=== PATIENT | female | born 1950 | race Caucasian/White ===

== ENCOUNTER 2024-06-03 08:43 | Outpatient (AMB) | payer MEDICARE, SELFPAY ==
--- NOTE | 2024-06-03 09:00 | A.OFFVIS_ITS ---
Vital Signs 06/03/24 09:01 Height 5 ft 4 in Weight 199 lb 2 oz BMI 34.2 BP 120/72 Blood Pressure Location Lt brachial Position Sitting Pulse 70 Pulse Source Pulse Oximeter Pulse Oximetry (%) 99 Oxygen Delivery Method Room Air Intake Visit Reasons: arthritis Intake Note: Patient presents for follow up on osteoarthritis today. Allergies ciprofloxacin [From Cipro] Allergy (Mild, Verified 06/03/24 09:08) rash prednisone Allergy (Mild, Verified 06/03/24 09:08) Itching Sulfa (Sulfonamide Antibiotics) Allergy (Mild, Verified 06/03/24 09:08) Rash acetaminophen [From Percocet] Adverse Reaction (Mild, Verified 06/03/24 09:08) itchiness albuterol Adverse Reaction (Mild, Verified 06/03/24 09:08) can't breathe high blood pressure oxycodone Adverse Reaction (Mild, Verified 06/03/24 09:08) itchiness tramadol Adverse Reaction (Mild, Verified 06/03/24 09:08) headache, nausea HPI HPI arthritis: Details: After a fall [place] stair [place] the movie theater she has had increase pain in left hand and right bunion. Pain is worse at night. Denies paresthesia. PA at [facility] prescribed gabapentin without benefit. She has been using diclofenac gel to the affected areas without benefit. Failed Tylenol. She is avoiding oral NSAIDs due to concurrent use of apixaban. [facility] Medical History (Updated 06/03/24 @ 21:36 by Marino Bonner MD) Encounter for colonoscopy following surgery for colon cancer Surgical History (Updated 06/03/24 @ 09:15 by Yesy Shah CMA) History of total left knee replacement (TKR) History of cholecystectomy Physical Exam Vital Signs: Last Vital Signs Pulse 70 06/03/24 09:01 BP 120/72 06/03/24 09:01 Pulse Ox 99 06/03/24 09:01 Oxygen Delivery Method Room Air 06/03/24 09:01 BMI result Body Mass Index 34.2 Const Other: General: Comfortable Skin: No lesions seen MSK: Tender left PIPs. No synovitis present. She has subluxation of DIPJ. Heberden nodes and Jesus's nodes present. Hallux valgus deformity present with tenderness on palpation on right side. Assessment & Plan Assessment & Plan (1) Osteoarthritis, hand: Comment: Pain is uncontrolled with Tylenol and diclofenac gel. Contraindication to oral NSAIDs use due to concurrent use of apixaban, which increases risk of bleeding. I am ordering bilateral hand x-rays to evaluate for erosive osteoarthritis as there may be a role to consider hydroxychloroquine. She was started on gabapentin by ortho PA to help treat generalized pain. Gabapentin is not indicated to treat pain from hand OA. Code(s): M19.049 - Primary osteoarthritis, unspecified hand Category: Medical Qualifiers: Osteoarthritis type: primary Laterality: right Qualified Code(s): M19.041 - Primary osteoarthritis, right hand Plan: Bilateral x-rays ordered Consider discontinued gabapentin [facility] Return to clinic in 2-3 weeks (2) Bunion, right foot: Comment: Pain is uncontrolled. Code(s): M21.611 - Bunion of right foot Category: Medical Plan: X-ray ordered. Return to clinic in 2-3 weeks for consideration of right 1st MTP intra-articular cortisone injection Orders: Orders XR hand LT min 3V Today M19.049 - Primary osteoarthritis, unspecified hand, M21.611 - Bunion of right foot OT Evaluation and Treatment Today M19.049 - Primary osteoarthritis, unspecified hand XR hand RT min 3V Today M19.049 - Primary osteoarthritis, unspecified hand XR foot RT 2V Today M21.611 - Bunion of right foot Coding Level of Care Code Est Pt Level 3 (70631) Complex EM visit Add On G2211 Diagnoses Primary osteoarthritis of right hand M19.041 Osteoarthritis type: primary Laterality: right Bunion, right foot M21.611
[2024-06-03 09:01] VITALS: BP 120/72; PULSE 70; O2SAT 99; BMI 34.2
--- OUTSIDE RECORDS SUMMARY | 2024-06-03 09:04 | XMS_ITS | Continuity of Care Document ---
Author Organization [facility], [facility] 1st Floor Address [address] [place] [address] Assessment No assessment recorded. Plan of Treatment Reminders Order Date Submit Date Provider Last Modified By Organization Details Last Modified Time Details Appointments RECHECK 15 2024 08:30A M Jane Snider CNP Not available Not available Not available Lab None recorded . Referral None recorded . Procedures None recorded . Surgeries None recorded . Imaging None recorded . Medication Orders None recorded . Patient TargetsNo targets recorded. Patient InstructionsNo instructions recorded. Reason for Referral None Reported. Results Created Date Observation Date Name Description Value Unit Range Abnormal Flag Note LastModifiedBy Organization Detail LastModifiedTime 04/09/20 24 04/09/2024 XR, foot, 2 view [email or web address]:/ [email or web address] ?Encry pted=s hAaTro YD8dLq bEUv6g %2BXZw aYqtaq 0bqfl% 2Fg9IQ a4ajBk vP9nXo QUaueC m3YtLR FvZlgJ JJ8mAn HZtai3 4p4934 AC0Kqa X%2BGV 6OvKiQ trMwF INTERFACE [facility] Office [address], [place], [address], 04/09/2024 08:54:19 04/09/20 24 04/09/2024 XR, foot, 2 view [email or web address]:/ [email or web address] ?Encry pted=s hAaTro YD8dLq bEUv6g %2BXZw aYqtaq 0bqfl% 2Fg9IQ a4ajBk vP9nXo QUaueC m3YtLR FvZlg [address] 2w8919 AC0Kqa X%2BGV 6OvKiQ trMwF INTERFACE [facility] [address], [place], [address], 04/09/2024 08:54:22 04/16/20 24 04/16/2024 XR, knee, 4 or more view http:/ [email or web address] ?Encry pted=s hAaTro YD8dLq bEUv6g %2BXZw aYqtaq 0bqfl% 2Fg9IQ a4ajBk vP9nXo QUaueC m3YtLR FvZl[address] 2q3329 AC0Kqa XiHWKq mKiQtr MwF INTERFACE [facility] [address] [facility] [address], [place], [address], 04/16/2024 08:54:30 04/16/20 24 04/16/2024 XR, knee, 4 or more view [email or web address]:/ [email or web address] ?Encry pted=s hAaTro YD8dLq bEUv6g %2BXZw aYqtaq 0bqfl% 2Fg9IQ a4ajBk vP9nXo QUaueC m3YtLR FvZl61 [address] 8k2045 AC0Kqa XiHWKq mKiQtr MwF INTERFACE [facility] [address] [facility] [address], [place], [address], 04/16/2024 08:54:32 04/16/20 24 04/16/2024 XR, elbow , 3 or more view http:/ [email or web address] ?Encry pted=s hAaTro YD8dLq bEUv6g %2BXZw aYqtaq 0bqfl% 2Fg9IQ a4ajBk vP9nXo QUaueC m3YtLR FvZlg JJ8mAn HZtai3 7t3926 AC0Kqa XiGUaK vKiQtr MwF INTERFACE [facility] [address], [place], [address], 04/16/2024 08:57:40 04/16/20 24 04/16/2024 XR, elbow , 3 or more view [email or web address]:/ [email or web address] ?Encry pted=s hAaTro YD8dLq bEUv6g %2BXZw aYqtaq 0bqfl% 2Fg9IQ a4ajBk vP9nXo QUaueC m3YtLR FvZlgJ JJ8mAn HZtai3 2k5546 AC0Kqa XiGUaK vKiQtr MwF INTERFACE [facility] [address], [place], [address], 04/16/2024 08:57:43 04/22/20 24 04/21/2024 MRI, foot, w/o contr ast [facility] te MRI- [facility] Access ion Number : [id number] Patien t Name: Julia Riya Martinez l Record Number : [id number] Date of : 1950 Date of Exam: 2023 Referr ing Physic renae: [facility] [address] [place] [address] Exam: MR Foot (C-) CPT 75839 - Right Room Descri ption: [facility] 3T MRI RIGHT FOOT HISTOR Y: Pain FINDIN GS: Lisfra nc ligame nt is intact . Mild first MTP osteoa rthrit is with small osteop hytes and small degene rative cysts No marrow edema. No eviden ce of fractu re. No signif icant TMT osteoa rthrit is. Flexor and extens or tendon s of the foot are intact . Mild first MTP osteoa rthrit is. Otherw ise normal exam. Electr onical ly Signed By: Trudi Vernon MD [email or web address] [facility] ([facility]) [address], [place], [address], 05/06/2024 13:44:49 Result Notes None recorded. Problems Name Problem SNOMED Code Status Onset Date Resolution Date Notes Provider Name and Address Organization Details Recorded Time No complaint s 703900673 Active Status: 'I'; [facility] Available [facility] 09:16:47 Pain in elbow 35319922 Active 2023 Valorie salmon [place] - [facility] 4 08:48:27 Carpal tunnel syndrome of left wrist 152552885853 102 Active 2017 Problem Code: G56.02; Problem Code Type: ICD-10; Status: 'A'; Not Available [facility] 4 11:13:07 Trochante shannon bursitis of right hip 141030500803 100 Active 2017 Problem Code: M70.61; Problem Code Type: ICD-10; Status: 'A'; [facility] Available [facility] 4 11:13:07 Trochante shannon bursitis of left hip 619984672643 103 Active 2017 Problem Code: M70.62; Problem Code Type: ICD-10; Status: 'A'; [facility] Available [facility] 4 11:13:07 Idiopathi c osteoarth ritis 171437495 Active 2017 Problem Code: M18.12; Problem Code Type: ICD-10; Status: 'A'; [facility] Available [facility] 4 11:13:07 Joint derangeme nt 389805309 Active 2017 Problem Code: M24.832; Problem Code Type: ICD-10; Status: 'A'; [facility] Available [facility] 4 11:13:07 Problem Notes None recorded. Procedures Surgical History Date Name Laterality Status Provider Name and Address Organization Details Recorded Time 4 Hip Kenalog 1cc Injection, L/R completed Jane Snider, [employer] [address], [place], [address], [facility] - [facility] 05/01/2024 14:11:24 4 Hip Kenalog 1cc Injection, L/R completed Jane Snider, [employer]RO[employer]/FI[employer]MAN [address], [place], [address], [facility] 11/07/2023 17:04:37 4 Hip Kenalog 1cc Injection, L/R completed Jane Galveza, [employer]RO[employer]/FIREMAN [address], [place], [address], [facility] 09/17/2023 12:18:20 Imaging Results None recorded. Procedure Notes None recorded. Medical Equipment None Reported. Allergies Allergen ID Allergen Name Allergen Category Reaction Reaction Severity Criticality Documentation Date Start Date Code Code System Note Provider Name and Address Organization Details Recorded Time 28792 prednison e medicatio n Not available Not available Not available 07/23/20232022 8640 RxNorm Not Available [facility] 4 13:52:04 84510 Cipro medicatio n Not available Not available Not available 07/23/20232020 37760 3 RxNorm Not Available [facility] 4 13:52:04 32106 lisinopri l medicatio n Not available Not available Not available 07/23/20232020 27609 RxNorm Not Available [facility] 4 13:52:04 Medications Name Sig Start Date Stop Date Status Note LastModified by Organization Details LastModified Time cyclobenzapr ine 10 mg tablet TAKE 1 TABLET BY MOUTH THREE TIMES DAILY active Not Available Not Available Not Available amoxicillin 500 mg capsule TAKE 4 CAPSULES BY MOUTH 1 HOUR BEFORE DENTAL APPOINTMENT active Not Available Not Available Not Available loperamide 2 mg capsule TAKE 1 CAPSULE BY MOUTH FOUR TIMES DAILY 1/2 HOUR BEFORE MEALS AND AT BEDTIME active Not Available Not Available N ot Available trazodone 50 mg tablet TAKE 1 TABLET BY MOUTH DAILY AT BEDTIME active Not Available Not Available N ot Available cetirizine 10 mg tablet TAKE 1 TABLET BY MOUTH DAILY active Not Available Not Available Not Available azithromycin 250 mg tablet active Not Available Not Available Not Available tizanidine 4 mg tablet TAKE ONE TABLET THREE TIMES DAILY. active Not Available Not Available No t Available hydrocodone 5 mg-acetamino phen 325 mg tablet TAKE 1 TABLET BY MOUTH EVERY 6 HOURS FOR 7 DAYS NEEDED FOR PAIN active Not Available Not Available No t Available tramadol 50 mg tablet TAKE 1 TABLET BY MOUTH EVERY 6 HOURS FOR 7 DAYS active Not Available Not Available No t Available amoxicillin 500 mg tablet TAKE 4 TABLETS BY MOUTH ONE HOUR PRIOR TO DENTAL APPOINTMENT active Not Available Not Available Not Available bisoprolol fumarate 5 mg tablet TAKE 1 TABLET BY MOUTH DAILY. REPLACES CARVEDILOL active Not Available Not Available N ot Available oxycodone-ac etaminophen 5 mg-325 mg tablet TAKE 1 TO 2 TABLETS BY MOUTH EVERY 6 HOURS NEEDED FOR PAIN active Not Available Not Available No t Available hydromorphon e 2 mg tablet TAKE 1 TO 2 TABLETS BY MOUTH EVERY 4 HOURS NEEDED FOR MODERATE TO SEVERE PAIN. active Not Available Not Available No t Available alprazolam 0.25 mg tablet TAKE 1 TABLET BY MOUTH TWICE DAILY NEEDED FOR ANXIETY active Not Available Not Available No t Available cephalexin 500 mg capsule TAKE 1 CAPSULE BY MOUTH MORNING OF PROCEDURE active Not Available Not Available No t Available pantoprazole 40 mg tablet,delay ed release TAKE 1 TABLET BY MOUTH EVERY DAY active Not Available Not Available No t Available erythromycin 5 mg/gram (0.5 %) eye ointment APPLY A LAYER OF OINTMENT TO LOWER EYELID FOUR TIMES DAILY X 7 DAYS active Not Available Not Available No t Available nystatin 100,000 unit/gram topical cream APPLY TOPICALLY TO THE AFFECTED AREA TWICE DAILY FOR 14 DAYS active Not Available Not Available No t Available gabapentin 300 mg capsule TAKE 1 CAPSULE BY MOUTH THREE TIMES DAILY NEEDED active Not Available Not Available No t Available triamterene 37.5 mg-hydrochlo rothiazide 25 mg tablet TAKE 2 TABLETS BY MOUTH DAILY active Not Available Not Available Not Available codeine 10 mg-guaifenes in 100 mg/5 mL oral liquid TAKE 10 ML BY MOUTH EVERY 4 HOURS NEEDED FOR COUGH active Not Available Not Available No t Available furosemide 20 mg tablet TAKE 1 TABLET BY MOUTH DAILY FOR 5 DAYS NEEDED FOR SWELLING OR WEIGHT GAIN active Not Available Not Available Not Available gabapentin 100 mg capsule Take 1 capsule 3 times a day by oral route with meal(s) for 30 days. 2024 active Not Available Not Available Not Avai lable nystatin 100,000 unit/gram topical powder APPLY TOPICALLY TWICE DAILY active Not Available Not Available Not Available estradiol 0.01% (0.1 mg/gram) vaginal cream USE 1 GRAM VAGINALLY 3 TIMES PER WEEK active Not Available Not Available No t Available levofloxacin 750 mg tablet TAKE 1 TABLET BY MOUTH EVERY 24 HOURS FOR 4 DAYS active Not Available Not Available N ot Available methylpredni solone 4 mg tablets in a dose pack take as directed active Not Available Not Available No t Available ferrous sulfate 325 mg (65 mg iron) tablet,delay ed release TAKE 1 TABLET BY MOUTH DAILY active Not Available Not Available Not Available ipratropium bromide 42 mcg (0.06 %) nasal spray USE 2 SPRAYS IN EACH NOSTRIL THREE TIMES DAILY IN EACH NOSTRIL active Not Available Not Available No t Available morphine 15 mg immediate release tablet TAKE 1/2 TO 1 TABLET BY MOUTH EVERY 4 HOURS NEEDED FOR MODERATE PAIN active Not Available Not Available No t Available fluticasone propionate 50 mcg/actuatio n nasal spray,suspen jess SHAKE LIQUID AND USE 1 SPRAY IN EACH NOSTRIL TWICE DAILY active Not Available Not Available Not Available metronidazol e 0.75 % topical gel APPLY TOPICALLY TO FACE IN THE MORNING AND IN THE EVENING FOR ROSACEA active Not Available Not Available No t Available glipizide 5 mg tablet TAKE 1 TABLET BY MOUTH TWICE DAILY active Not Available Not Available No t Available tobramycin 0.3 %-dexamethas one 0.1 % eye drops,suspen jess SHAKE LIQUID AND INSTILL 1 DROP IN BOTH EYES THREE TIMES DAILY active Not Available Not Available No t Available azelaic acid 15 % topical gel APPLY TOPICALLY TO FACE 1 TO 2 TIMES DAILY FOR ROSACEA active Not Available Not Available No t Available nitrofuranto in monohydrate/ macrocrystal s 100 mg capsule TAKE 1 CAPSULE BY MOUTH TWICE DAILY FOR 5 DAYS active Not Available Not Available No t Available Pulmicort Flexhaler 180 mcg/actuatio n breath activated INHALE 1 PUFF BY MOUTH TWICE DAILY active Not Available Not Available No t Available ferrous sulfate 324 mg (65 mg iron) tablet,delay ed release TAKE 1 TABLET BY MOUTH DAILY active Not Available Not Available Not Available GaviLyte-G 236 gram-22.74 gram-6.74 gram-5.86 gram oral solution MIX AND DRINK DIRECTED BY MD OFFICE FOR PROCEDURE PREP active Not Available Not Available No t Available Allergy Relief (fexofenadin e) 180 mg tablet TAKE 1 TABLET BY MOUTH DAILY active Not Available Not Available Not Available Eliquis 5 mg tablet TAKE 1 TABLET BY MOUTH TWICE DAILY active Not Available Not Available No t Available Eliquis 2.5 mg tablet TAKE 1 TABLET BY MOUTH TWO TIMES A DAY FOR 7 DAYS. RESUME HOME DOSE OF 5MG AFTER 7 DAYS. active Not Available Not Available No t Available Readi-Cat 2 2 % (w/v) oral suspension DRINK FIRST BOTTLE 6 HOURS PRIOR TO EXAM, DRINK SECOND BOTTLE 90 MINUTES PRIOR TO EXAM active Not Available Not Available No t Available Voltaren Arthritis Pain 1 % topical gel APPLY 2 GRAMS TO THE AFFECTED AREA(S) BY TOPICAL ROUTE 4 TIMES PER DAY 2023 active Not Available Not Available Not Avai lable Vitals Date Recorded Body height Body mass index (BMI) Body weight Provider Name and Address Organization Details Last Updated DateTime 05/02/2024 160.02 cm 32.9 kg/m2 01605.18 g MARY ALONZO [place] - [facility] 05/02/2024 09:44:59 Social History None recorded. Functional Status None recorded. Mental Status None recorded. Family History Nothing Reported. Medical History No medical history recorded. Gynecological HistoryNo gynecological history recorded. Obstetrics History GPAL:G 0 P 0 0 0 0 Past Encounters Encounter ID Performer Location Encounter Start Date Encounter Closed Date Diagnosis/Indication Diagnosis SNOMED-CT Code Diagnosis ICD10 Code Diagnosis Note [id number] SEBLE Jimenez [address] [place] [address] 04/09/2024 08:15:41 04/24/2024 11:11:44 Pain in right foot 6637146925 76399 M79.671 Arthritis of right foot 0586609186 516683 M19.012 [id number] SEBLE Gomez [address] [place] [address] 04/16/2024 08:15:54 05/20/2024 12:14:40 History of left total knee replacement 4480225870 774085 Z96.652 Pain in elbow 82218822 M 25.522 Contusion of left knee 9801759293 0916588 S80.02XA Contusion of left elbow 7302899887 7338239 S50.02XA [id number] SEBLE Jimenez [address] [place] [address] 04/30/2024 08:44:20 05/29/2024 11:53:50 Arthritis of right foot 9602654078 459645 M19.071 Carpal susy trista syndrome of left wrist 4582754452 27527 G56.02 [id number] Jane Snider, JUDY [address] [place] [address] 05/02/2024 08:58:46 05/23/2024 07:19:39 Health Concerns Section Related Observation LastModified by Organization Detai ls LastModified Time None Recorded Concern Status LastModified by Organization Details LastModified Time None Recorded Payers Encounter Date Sequence Insurance Name Policy Number Policy Singh Covered Member ID Singh Member ID Guarantor Name 05/02/2024 2 [employer] (MEDICARE SUPPLEMENT) Riya Saldana Julia [id number] Riya Shana Dumont 05/02/2024 1 MEDICARE B-[place]: [facility] Riya Shana Dumont [id number] Riya Dumont Notes Date Note Type Note Provider Name and Address Organization Details Recorded Time 05/02/2024 text/html Riya is a 73 ye ar old female who is here for follow up of her left hip. She has known trochanteric bursitis and has had previous cortisone injection which gave good relief. She is here for follow up. Jane Snider, JUDY [address], [place], [address], [facility] - [facility] 05/02/2024 12:12:29 OBGyn Episode No OBEpisode recorded.
--- OUTSIDE RECORDS SUMMARY | 2024-06-03 09:04 | XMS_ITS | Continuity of Care Document ---
Author Organization [place]EL[place] - [facility], [facility] Campos 1st Floor Address [address] [place] [address] Assessment Encounter Date Assessment Date Assessment LastModified by Organization Details LastModified Time 05/26/2024 05/26/2024 I am seeing the patient today under the supervision of Dr. Barajas who was available but who did not see the patient. HPI: 73-year-old female seen in follow-up of right foot pain and left elbow and hand discomfort. 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 Spring White insert was of little benefit. Some KT tape seems to be helping her. She had also fallen in as a pain in her hip and thigh as well as the left elbow. She seemed to have a contusion of the ulnar nerve, which as been helped somewhat with course of steroids, and gabapentin. She continues her postural numbness and tingling in the median nerve innervated digits of the left hand relieved with a splint. Past family, medical, social history and review of systems has been reviewed, updated and is located in the patient? s chart. Examination: the patient is alert and cooperative in no acute distress. Afebrile, vital signs stable. There is active ROM of the hips and knees, calves are soft and nontender. There is active range of motion of foot and ankle. There is tenderness primarily in the mid arch region of the first TMT joint. There is positive Tinel sign in the ulnar nerve. Mild positive Khoi's elbow flexion test. There is mildly positive median nerve compression test. There is no thenar atrophy. Good thenar strength. Normal Froment sign Impression: Resolving left elbow contusion, mild left carpal tunnel syndrome, right foot. Pain with first TMT arthritis Plan:. She will continue with her medications. We will continue with the splint. We are going to try midfoot compression wrap. Foot pain continues could consider first TMT injection. Also may consider a carpal tunnel injection. [email or web address] Not available 05/26/2024 09:31:20 Plan of Treatment Reminders Order Date Submit Date Provider Last Modified By Organization Details Last Modified Time Details Appointments RECHECK 15 2024 08:30A M Jane Snider, JUDY Not available Not available Not available Lab None recorded. Referral None recorded. Procedures None recorded. Surgeries None recorded. Imaging None recorded. Medication Orders gabapenti n 100 mg capsule 2024 025 [email or web address] [id number], [address] [facility], [place], [place], [id number], 05/26/2024 11:52:41 Patient TargetsNo targets recorded. Patient InstructionsNo instructions recorded. Reason for Referral None Reported. Problems Name Problem SNOMED Code Status Onset Date Resolution Date Notes Provider Name and Address Organization Details Recorded Time No complaint s 682443620 Active Status: 'I'; Not Available [facility] 4 09:16:47 Pain in elbow 43929833 Active 2023 Valorie salmon [place] - [facility] 4 08:48:27 Carpal tunnel syndrome of left wrist 083948425954 102 Active 2017 Problem Code: G56.02; Problem Code Type: ICD-10; Status: 'A'; Not Available [facility] 4 11:13:07 Trochante shannon bursitis of right hip 477805760837 100 Active 2017 Problem Code: M70.61; Problem Code Type: ICD-10; Status: 'A'; Not Available [facility] 4 11:13:07 Trochante shannon bursitis of left hip 064642210517 103 Active 2017 Problem Code: M70.62; Problem Code Type: ICD-10; Status: 'A'; Not Available [facility] 4 11:13:07 Idiopathi c osteoarth ritis 266168429 Active 2017 Problem Code: M18.12; Problem Code Type: ICD-10; Status: 'A'; Not Available [facility] 4 11:13:07 Joint derangeme nt 405148706 Active 2017 Problem Code: M24.832; Problem Code Type: ICD-10; Status: 'A'; Not Available [facility] 4 11:13:07 Problem Notes None recorded. Procedures Surgical History Date Name Laterality Status Provider Name and Address Organization Details Recorded Time 4 Hip Kenalog 1cc Injection, L/R completed Jane Drenga, HEALTHCARE ADMINISTRATOR [address], [place], [address], [facility] 05/01/2024 14:11:24 4 Hip Kenalog 1cc Injection, L/R completed Jane Drenga, HEALTHCARE ADMINISTRATOR [address], [place], [address], [facility] 11/07/2023 17:04:37 4 Hip Kenalog 1cc Injection, L/R completed Jane Drenga, HEALTHCARE ADMINISTRATOR [address], [place], [address], [facility] 09/17/2023 12:18:20 Imaging Results None recorded. Procedure Notes None recorded. Medical Equipment None Reported. Allergies Allergen ID Allergen Name Allergen Category Reaction Reaction Severity Criticality Documentation Date Start Date Code Code System Note Provider Name and Address Organization Details Recorded Time 83143 prednison e medicatio n Not available Not available Not available 07/23/20232022 8640 RxNorm Not Available [facility] 4 13:52:04 92136 Cipro medicatio n Not available Not available Not available 07/23/20232020 61506 3 RxNorm Not Available [facility] 13:52:04 75087 lisinopri l medicatio n Not available Not available Not available 07/23/20232020 52714 RxNorm Not Available [facility] 13:52:04 Medications Name Sig Start Date Stop [...] and Address Organization Details Last Updated DateTime 05/26/2024 160.02 cm 32.9 kg/m2 96542.18 g Bere Puckett [place] - [facility] 05/26/2024 08:44:06 Social History None recorded. Functional Status None recorded. Mental Status None recorded. Family History Nothing Reported. Medical History No medical history recorded. Gynecological HistoryNo gynecological history recorded. Obstetrics History GPAL:G 0 P 0 0 0 0 Past Encounters Encounter ID Performer Location Encounter Start Date Encounter Closed Date Diagnosis/Indication Diagnosis SNOMED-CT Code Diagnosis ICD10 Code Diagnosis Note [id number] [facility] [address] [place] [address] 04/30/2024 08:44:20 05/29/2024 11:53:50 Arthritis of right foot 0244375177 419701 M19.071 Carpal susy trista syndrome of left wrist 3882685424 59089 G56.02 [id number] Jane Agatha, HEALTHCARE ADMINISTRATOR [facility] [address] [place] [address] 05/02/2024 08:58:46 05/23/2024 07:19:39 [id number] Aaron Barajas PA-C [place] - [facility] [address] [place] [address] 05/26/2024 08:34:55 05/26/2024 09:32:20 Pain in right foot 6639520873 99573 M79.671 Carpal susy trista syndrome of left wrist 3421003954 01849 G56.02 Arthritis of right foot 4980970912 735586 M19.071 Health Concerns Section Related Observation LastModified by Organization Detai ls LastModified Time None Recorded Concern Status LastModified by Organization Details LastModified Time None Recorded Payers Encounter Date Sequence Insurance Name Policy Number Policy Singh Covered Member ID Singh Member ID Guarantor Name 05/26/2024 2 [employer] (MEDICARE SUPPLEMENT) Riya Dumont [id number] Riya Dumont 05/26/2024 1 [place] [employer] Riya Dumont [id number] Riya Dumont OBGyn Episode No OBEpisode recorded.
--- OUTSIDE RECORDS SUMMARY | 2024-06-03 09:05 | XMS_ITS | Continuity of Care Document ---
Author Organization [place] - [facility], [place] 1[address] Address [address] [place] [address] Assessment No assessment recorded. Plan of Treatment Reminders Order Date Submit Date Provider Last Modified By Organization Details Last Modified Time Details Appointments RECHECK 15 2024 08:30A M Jane Snider CNP Not available Not available Not available Lab None recorded . Referral None recorded . Procedures None recorded . Surgeries None recorded . Imaging XR, knee, 4 or more view - LTKR 12/06/22. Dr. Blum [email or web address] [facility], [address], [place], [address], 04/16/2024 11:48:51 XR, elbow, 3 or more view - lft elbow pain rm [email or web address] [facility], [address], [place], [address], 04/16/2024 11:48:51 Medication Orders None recorded . Patient TargetsNo targets recorded. Patient InstructionsNo instructions recorded. Reason for Referral None Reported. Results Created Date Observation Date Name Description Value Unit Range Abnormal Flag Note LastModifiedBy Organization Detail LastModifiedTime 04/09/20 24 04/09/2024 XR, foot, 2 view [email or web address]:/ [email or web address] ?Encry pted=s hAaTro YD8dLq bEUv6g %2BXZw aYqtaq 0bqfl% 2Fg9IQ a4ajBk vP9nXo QUaueC m3YtLR FvZlgJ JJ8mAn HZtai3 5m4737 AC0Kqa X%2BGV 6OvKiQ trMwF INTERFACE [facility] [address] [facility] [address], [place], [address], 04/09/2024 08:54:19 04/09/20 24 04/09/2024 XR, foot, 2 view [email or web address]:/ [email or web address] ?Encry pted=s hAaTro YD8dLq bEUv6g %2BXZw aYqtaq 0bqfl% 2Fg9IQ a4ajBk vP9nXo QUaueC m3YtLR FvZl JJ8[place] HZtai3 8q9332 AC0Kqa X%2BGV 6OvKiQ trMwF INTERFACE [facility] [address] [address], [place], [address], 04/09/2024 08:54:22 04/16/20 24 04/16/2024 XR, knee, 4 or more view [email or web address]:/ [email or web address] ?Encry pted=s hAaTro YD8dLq bEUv6g %2BXZw aYqtaq 0bqfl% 2Fg9IQ a4ajBk vP9nXo QUaueC m3YtLR FvZl JJ8[place] HZtai3 2d9323 AC0Kqa XiHWKq mKiQtr MwF INTERFACE [facility] [address] [address], [place], [address], 04/16/2024 08:54:30 04/16/20 24 04/16/2024 XR, knee, 4 or more view [email or web address]:/ [email or web address] ?Encry pted=s hAaTro YD8dLq bEUv6g %2BXZw aYqtaq 0bqfl% 2Fg9IQ a4ajBk vP9nXo QUaueC m3YtLR FvZlgJ JJ8mAn HZtai3 5v2336 AC0Kqa XiHWKq mKiQtr MwF INTERFACE [facility] [address], [place], [address], 04/16/2024 08:54:32 04/16/20 24 04/16/2024 XR, elbow , 3 or more view http:/ [email or web address] ?Encry pted=s hAaTro YD8dLq bEUv6g %2BXZw aYqtaq 0bqfl% 2Fg9IQ a4ajBk vP9nXo QUaueC m3YtLR FvZlgJ JJ8mAn HZtai3 6u3738 AC0Kqa XiGUaK vKiQtr MwF INTERFACE [facility] [address], [place], [address], 04/16/2024 08:57:40 04/16/20 24 04/16/2024 XR, elbow , 3 or more view http:/ [email or web address] ?Encry pted=s hAaTro YD8dLq bEUv6g %2BXZw aYqtaq 0bqfl% 2Fg9IQ a4ajBk vP9nXo QUaueC m3YtLR FvZlgJ JJ8mAn HZtai3 5p6171 AC0Kqa XiGUaK vKiQtr MwF INTERFACE [facility] [address] [facility] [address], [place], [address], 04/16/2024 08:57:43 04/22/20 24 04/21/2024 MRI, foot, w/o contr ast [facility] Access ion Number : [id number] Divine jim Name: Riya Dumont Record Number : [id number] Date of : 1950 Date of Exam: 2023 Referr ing Physic renae: [facility] [address], [address] [place] [address] Exam: MR Foot (C-) CPT 66319 - Right Room Descri ption: [facility] Pion 3T MRI RIGHT FOOT HISTOR Y: Pain [...] onical ly Signed By: Trudi Vernon MD [email or web address] [facility] ([facility]) [address], [place], [address], 05/06/2024 13:44:49 Result Notes None recorded. Problems Name Problem SNOMED Code Status Onset Date Resolution Date Notes Provider Name and Address Organization Details Recorded Time No complaint s 332161972 Active Status: 'I'; Not Available [facility] 4 09:16:47 Pain in elbow 73262314 Active 2023 Valorie salmon [place] - [facility] 4 08:48:27 Carpal tunnel syndrome of left wrist 071253532331 102 Active 2017 Problem Code: G56.02; Problem Code Type: ICD-10; Status: 'A'; Not Available [facility] 4 11:13:07 Trochante shannon bursitis of right hip 257721357385 100 Active 2017 Problem Code: M70.61; Problem Code Type: ICD-10; Status: 'A'; Not Available [facility] 4 11:13:07 Trochante shannon bursitis of left hip 894800571039 103 Active 2017 Problem Code: M70.62; Problem Code Type: ICD-10; Status: 'A'; Not Available [facility] 4 11:13:07 Idiopathi c osteoarth ritis 939049038 Active 2017 Problem Code: M18.12; Problem Code Type: ICD-10; Status: 'A'; Not Available [facility] 4 11:13:07 Joint derangeme nt 222018373 Active 2017 Problem Code: M24.832; Problem Code Type: ICD-10; Status: 'A'; Not Available [facility] 4 11:13:07 Problem Notes None recorded. Procedures Surgical History Date Name Laterality Status Provider Name and Address Organization Details Recorded Time 4 Hip Kenalog 1cc Injection, L/R completed Jane Drenga, FOOD AND NUTRITION SERVICES ASSISTANT [address] [facility], [place], [address], [facility] 05/01/2024 14:11:24 4 Hip Kenalog 1cc Injection, L/R completed Jane Drenga, FOOD AND NUTRITION SERVICES ASSISTANT [address], [place], [address], [facility] 11/07/2023 17:04:37 4 Hip Kenalog 1cc Injection, L/R completed Jane Drenga, FOOD AND NUTRITION SERVICES ASSISTANT [address], [place], [address], [facility] 09/17/2023 12:18:20 Imaging Results None recorded. Procedure Notes None recorded. Medical Equipment None Reported. Allergies Allergen ID Allergen Name Allergen Category Reaction Reaction Severity Criticality Documentation Date Start Date Code Code System Note Provider Name and Address Organization Details Recorded Time 82664 prednison e medicatio n Not available Not available Not available 07/23/20232022 8640 RxNorm Not Available [facility] 4 13:52:04 22633 Cipro medicatio n Not available Not available Not available 07/23/20232020 62369 3 RxNorm Not Available [facility] 4 13:52:04 98027 lisinopri l medicatio n Not available Not available Not available 07/23/20232020 77095 RxNorm Not Available [facility] 4 13:52:04 Medications Name Sig Start Date [...] and Address Organization Details Last Updated DateTime 04/16/2024 160.02 cm 32.9 kg/m2 36086.18 g Valorie Reese [place] - [facility] 04/16/2024 08:44:24 Social History None recorded. Functional Status None recorded. Mental Status None recorded. Family History Nothing Reported. Medical History No medical history recorded. Gynecological HistoryNo gynecological history recorded. Obstetrics History GPAL:G 0 P 0 0 0 0 Past Encounters Encounter ID Performer Location Encounter Start Date Encounter Closed Date Diagnosis/Indication Diagnosis SNOMED-CT Code Diagnosis ICD10 Code Diagnosis Note [id number] [facility] [address] [place] [address] 04/09/2024 08:15:41 04/24/2024 11:11:44 Pain in right foot 2877076550 08674 M79.671 Arthritis of right foot 2135497490 098557 M19.796 [id number] Leno Maher PA-C [facility] [address] [place] [address] 04/16/2024 08:15:54 05/20/2024 12:14:40 History of left total knee replacement 2402797342 797967 Z96.652 Pain in elbow 68925241 M 25.522 Contusion of left knee 7657083999 1775469 S80.02XA Contusion of left elbow 7299255304 8074248 S50.02XA Health Concerns Section Related Observation LastModified by Organization Detai ls LastModified Time None Recorded Concern Status LastModified by Organization Details LastModified Time None Recorded Payers Encounter Date Sequence Insurance Name Policy Number Policy Singh Covered Member ID Singh Member ID Guarantor Name 04/16/2024 1 [place] [employer] Ryiapalmer Dumont [id number] Riyapalmer Dumont 04/16/2024 2 [place] [id number] Riya Saldana Julia [id number] Riya Saldana Julia Notes Date Note Type Note Provider Name and Address Organization Details Recorded Time 04/16/2024 text/html I am seeing the patient today under the supervision of Dr. Caban who was available but who did not see the patient. HPI: Patient is a 73-year-old female with a history of a left total knee replacement by Dr. Blum on 12/06/2022. Patient unfortunately sustained a fall a few days ago on Sunday when she was walking [place] the stairs at a movie theater and her shoe got caught and she face planted. She hit her face against the ground as well as her left knee and left elbow. Has been having some mild pain in both her elbow as well as her knee. Increased pain with ambulatory activities. Has been icing as needed. Ickr-agx-lokfbmx medications as needed for pain relief. No instability in the knee. No catching or locking. Past family, medical, social history and review of systems has been reviewed, updated and is located in the patient? s chart. Examination: Well-appearing 73-year-old female in no acute distress. She is alert and oriented x 3. Ambulates with a slightly antalgic gait. Left knee reveals a well-healed surgical incision. No erythema, warmth, ecchymosis. Small joint effusion noted. Mild tenderness to palpation over the anterior aspect of the knee. No tenderness palpation over the medial or lateral joint lines. Range of motion of the knee from 0-120 degrees with mild discomfort at the endpoints. Knee strength 5/5 against resistance with flexion and extension. Knee is stable to both valgus and varus stress testing. Post is intact. Calf is soft and nontender. Left elbow reveals no erythema, warmth, ecchymosis, swelling. Patient has full range of motion with elbow flexion and extension. Full range of motion of the wrist and digits. Mild discomfort with elbow extension. There is some tenderness primarily over the medial epicondyle. No other tenderness to palpation. No laxity with valgus or varus stress testing. Strength 5/5 against resistance with elbow flexion and extension. Distally neurovascular intact. 4 views of the left knee obtained and independently reviewed in the office today reveal left total knee arthroplasty in good alignment. No evidence of any osteolysis or loosening. Patella is tracking centrally. No fracture. 3 views of the left elbow reveal no acute fractures. Impression:Left knee and left elbow contusion Plan:Reassured patient today that radiographic findings are unremarkable. No signs of acute fracture. Patient to can delacruz you to treat this conservatively with icing, resting, activity modification as well as use of oaqa-cuh-turbquz medications. Patient can follow-up with us on an as-needed basis. At this time all patient questions and concerns were answered today. Leno Maher PA-C [address] [facility], [place], [address], [facility] - [place] [facility] 04/21/2024 09:31:08 OBGyn Episode No OBEpisode recorded.
--- OUTSIDE RECORDS SUMMARY | 2024-06-03 09:05 | XMS_ITS | Continuity of Care Document ---
Author Organization [place] - [facility], [facility] 1st Floor Address [address] [place] [address] Assessment Encounter Date Assessment Date Assessment LastModified by Organization Details LastModified Time 04/09/2024 04/09/2024 I am seeing the patient today under the supervision of Dr. Barajas who was available but who did not see the patient. HPI: 73-year-old female returns for reevaluation of bilateral foot pain. She has had pain primarily in the first MTP regions along the medial border of her first ray. Right is greater than left. She tried carbon fiber insoles, which did not help at all. She felt helped somewhat by P4 compound but she cannot afford it anymore. 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 She denies numbness or tingling. She has seen a obstetrics teacher in the past and has been discharged without diagnosis. Past family, medical, social history and review of systems has been reviewed, updated and is located in the patient? s chart. Examination: the patient is alert and cooperative in no acute distress. Afebrile, vital signs stable. There is active ROM of the hips and knees, calves are soft and nontender. His active range of motion both ankles. Both feet are aligned reasonably well. She has some stiffness of the left ankle. 2. Hindfoot valgus. Previous ORIF of her ankle is been performed on the left. There is tenderness primarily along the first ray medially. There is pain without instability in the first TMT joint. Lesser pain in the first MTP joint area and circulation sensation intact.gastrocnem ius tightness is noted bilaterally X-rays ordered, obtained and reviewed at [facility]. Single AP film was normal. The right foot today to rule out stress fracture was negative. Impression: Right foot pain, question first TMT arthritis. Plan:I recommended gastroc stretching, use of anti-inflammatory cream. A CT scan will be obtained to assess her right foot for lytic change. She will recheck with me roca Not available 04/09/2024 09:09:19 Plan of Treatment Reminders Order Date Submit Date Provider Last Modified By Organization Details Last Modified Time Details Appointments RECHECK 15 2024 08:30A Sabi Snider, BLAST FURNACE HELPER Not available Not available Not available Lab None recorded. Referral None recorded. Procedures None recorded. Surgeries None recorded. Imaging XR, foot, 2 view - rm 110 right foot ap view only 2023 [place] [address] [facility], [address], [place], [address], 04/09/2024 09:53:22 MRI, foot, w/o contrast - RIGHT FOOT EVAL TMT ARTHRITIS PAIN,SWEL LING 2023 024 [facility] ([facility]), [address], [place], [address], 04/22/2024 15:50:53 Medication Orders Voltaren Arthritis Pain 1 % topical gel [address] [id number], [address] [place], [place], [phone], 04/09/2024 09:53:22 Patient TargetsNo targets recorded. Patient InstructionsNo instructions recorded. Reason for Referral None Reported. Results Created Date Observation Date Name Description Value Unit Range Abnormal Flag Note LastModifiedBy Organization Detail LastModifiedTime 04/09/20 24 04/09/2024 XR, foot, 2 view [email or web address] ?Encry pted=s hAaTro YD8dLq bEUv6g %2BXZw aYqtaq 0bqfl% 2Fg9IQ a4ajBk vP9nXo QUaueC m3YtLR FvZlgJ JJ8mAn HZtai3 9i7049 AC0Kqa X%2BGV 6OvKiQ trMwF INTERFACE [facility] [address] [facility], [place], [address], 04/09/2024 08:54:19 04/09/20 24 04/09/2024 XR, foot, 2 view [email or web address]:/ [email or web address] ?Encry pted=s hAaTro YD8dLq bEUv6g %2BXZw aYqtaq 0bqfl% 2Fg9IQ a4ajBk vP9nXo QUaueC m3YtLR FvZl JJ8Galloway HZtai3 8m4562 AC0Kqa X%2BGV 6OvKiQ trMwF INTERFACE [facility] [address] [facility] [address], [place], [address], 04/09/2024 08:54:22 04/16/20 24 04/16/2024 XR, knee, 4 or more view [email or web address] ?Encry pted=s hAaTro YD8dLq bEUv6g %2BXZw aYqtaq 0bqfl% 2Fg9IQ a4ajBk vP9nXo QUaueC m3YtLR FvZl JJ8Galloway HZtai3 1o8352 AC0Kqa XiHWKq mKiQtr MwF INTERFACE [facility] [address] [facility] [address], [place], [address], 04/16/2024 08:54:30 04/16/20 24 04/16/2024 XR, knee, 4 or more view [email or web address] ?Encry pted=s hAaTro YD8dLq bEUv6g %2BXZw aYqtaq 0bqfl% 2Fg9IQ a4ajBk vP9nXo QUaueC m3YtLR FvZlgJ JJ8Galloway HZtai3 6t7212 AC0Kqa XiHWKq mKiQtr MwF INTERFACE [facility] [address], [place], [address], 04/16/2024 08:54:32 04/16/20 24 04/16/2024 XR, elbow , 3 or more view [email or web address] ?Encry pted=s hAaTro YD8dLq bEUv6g %2BXZw aYqtaq 0bqfl% 2Fg9IQ a4ajBk vP9nXo QUaueC m3YtLR FvZlgJ JJ8mAn HZtai3 0t6465 AC0Kqa XiGUaK vKiQtr MwF INTERFACE [facility] [address], [place], [address], 04/16/2024 08:57:40 04/16/20 24 04/16/2024 XR, elbow , 3 or more view [email or web address] ?Encry pted=s hAaTro YD8dLq bEUv6g %2BXZw aYqtaq 0bqfl% 2Fg9IQ a4ajBk vP9nXo QUaueC m3YtLR FvZlgJ JJ8Galloway HZtai3 9m9568 AC0Kqa XiGUaK vKiQtr MwF INTERFACE [facility] [address], [place], [address], 04/16/2024 08:57:43 04/22/20 24 04/21/2024 MRI, foot, w/o contr ast [facility] Access ion Number : [id number] Divine t Name: Riya Dumont Record Number : [id number] Date of : 1950 Date of Exam: 2023 Referr ing Physic renae: [facility] ([facility]) [address], [address] [place] [address] Exam: MR Foot (C-) CPT 16138 - Right Room Descri ption: [facility] Pi 3T MRI RIGHT FOOT HISTOR Y: Pain [...] onical ly Signed By: Trudi Vernon MD [facility] ([facility]) [address], [place], [address], 05/06/2024 13:44:49 Result Notes None recorded. Problems Name Problem SNOMED Code Status Onset Date Resolution Date Notes Provider Name and Address Organization Details Recorded Time No complaint s 443699373 Active Status: 'I'; Not Available [facility] 4 09:16:47 Pain in elbow 10734328 Active 2023 Valorie salmon [place] - [facility] 4 08:48:27 Carpal tunnel syndrome of left wrist 307852465203 102 Active 2017 Problem Code: G56.02; Problem Code Type: ICD-10; Status: 'A'; Not Available [facility] 4 11:13:07 Trochante shannon bursitis of right hip 512258759983 100 Active 2017 Problem Code: M70.61; Problem Code Type: ICD-10; Status: 'A'; Not Available [facility] 4 11:13:07 Trochante shannon bursitis of left hip 122749518050 103 Active 2017 Problem Code: M70.62; Problem Code Type: ICD-10; Status: 'A'; Not Available [facility] 4 11:13:07 Idiopathi c osteoarth ritis 133650421 Active 2017 Problem Code: M18.12; Problem Code Type: ICD-10; Status: 'A'; Not Available [facility] 4 11:13:07 Joint derangeme nt 783598502 Active 2017 Problem Code: M24.832; Problem Code Type: ICD-10; Status: 'A'; Not Available [facility] 4 11:13:07 Problem Notes None recorded. Procedures Surgical History Date Name Laterality Status Provider Name and Address Organization Details Recorded Time 4 Hip Kenalog 1cc Injection, L/R completed Jane Drenga, BLAST FURNACE HELPER [address] [facility], [place], [address], [facility] 05/01/2024 14:11:24 4 Hip Kenalog 1cc Injection, L/R completed Jane Drenga, BLAST FURNACE HELPER [address], [place], [address], [facility] 11/07/2023 17:04:37 4 Hip Kenalog 1cc Injection, L/R completed Jane Drenga, BLAST FURNACE HELPER [address], [place], [address], [facility] 09/17/2023 12:18:20 Imaging Results None recorded. Procedure Notes None recorded. Medical Equipment None Reported. Allergies Allergen ID Allergen Name Allergen Category Reaction Reaction Severity Criticality Documentation Date Start Date Code Code System Note Provider Name and Address Organization Details Recorded Time 32343 prednison e medicatio n Not available Not available Not available 07/23/20232022 8640 RxNorm Not Available [facility] 4 13:52:04 89721 Cipro medicatio n Not available Not available Not available 07/23/20232020 30271 3 RxNorm Not Available [facility] 4 13:52:04 99501 lisinopri l medicatio n Not available Not available Not available 07/23/20232020 19038 RxNorm Not Available [facility] 13:52:04 Medications Name Sig Start Date Stop [...] and Address Organization Details Last Updated DateTime 04/09/2024 160.02 cm 32.9 kg/m2 71528.18 g MARY ALONZO [place] - [facility] 04/09/2024 08:20:51 Social History None recorded. Functional Status None recorded. Mental Status None recorded. Family History Nothing Reported. Medical History No medical history recorded. Gynecological HistoryNo gynecological history recorded. Obstetrics History GPAL:G 0 P 0 0 0 0 Past Encounters Encounter ID Performer Location Encounter Start Date Encounter Closed Date Diagnosis/Indication Diagnosis SNOMED-CT Code Diagnosis ICD10 Code Diagnosis Note [id number] [facility] [address] [place] [address] 04/09/2024 08:15:41 04/24/2024 11:11:44 Pain in right foot 6406967143 47730 M79.671 Arthritis of right foot 3208012543 077704 M19.071 Health Concerns Section Related Observation LastModified by Organization Detai ls LastModified Time None Recorded Concern Status LastModified by Organization Details LastModified Time None Recorded Payers Encounter Date Sequence Insurance Name Policy Number Policy Singh Covered Member ID Singh Member ID Guarantor Name 04/09/2024 1 [place] [employer] Riya Dumont [id number] Riya Dumont 04/09/2024 2 [place] [id number] Riya Dumont [id number] Riya Dumont OBGyn Episode No OBEpisode recorded.
--- OUTSIDE RECORDS SUMMARY | 2024-06-03 09:05 | XMS_ITS | Continuity of Care Document ---
Author Organization [place] - [facility], [facility] 1st Floor Address [address] [place] [address] Assessment Encounter Date Assessment Date Assessment LastModified by Organization Details LastModified Time 04/30/2024 04/30/2024 I am seeing the patient today under the supervision of Dr. Ennis who was available but who did not see the patient. HPI: 73-year-old female seen in follow-up of right foot pain. She said pain along the medial border foot area of the first ray. A postoperative shoe did not provide much assistance and she is using a sneaker. Also, since I last saw her, she fell down an escalator [place] [employer] and had a contusion to the left side of her face and injured her left elbow. Since that time she has had lancinating pain into the forearm and hand. Occasionally has some numbness in the index finger and feels strange sensation in the ring and small fingers. She had been seen in the ER. Past family, medical, social history and review of systems has been reviewed, updated and is located in the patient? s chart. Examination: the patient is alert and cooperative in no acute distress. Afebrile, vital signs stable. There is active ROM of the hips and knees, calves are soft and nontender. There is active range of motion of the right ankle and the AP plane. There persists to be tenderness along the medial border of the mid and forefoot. No instability of the first ray noted. No tenderness in the first interspace. Pain seems to be primarily centered in the first TMT joint. Examination of the left elbow reveals full range of motion, positive Khoi's elbow flexed S mildly positive median nerve compression test. Abduction posture of the thumb with tenderness at the base of the thumb metacarpal trapezial joint. Intact digital motion. MRI scan which was ordered and reviewed, demonstrates degenerative changes of the first metatarsal tarsal joint. Impression: Right first metatarsal tarsal arthritis, left elbow contusion with likely ulnar nerve contusion. 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 I considered injecting the first TMT joint. But given her other symptoms only ultimately decided to try a course of tapering steroids. Also use a wrist splint and an arch support and avoid extremes of elbow flexion. She has appointment with Mayela coming up, but she can discuss how her symptoms are. I will be out of town coming up and if her foot is still bothering her, she could be referred to one of the foot surgeons for consideration of injection of the TMT joint. All hand and elbow care as per her symptoms. [email or web address] Not available 04/30/2024 09:32:23 Plan of Treatment Reminders Order Date Submit Date Provider Last Modified By Organization Details Last Modified Time Details Appointments RECHECK 15 2024 08:30A M Jane Snider CNP Not available Not available Not available Lab None recorded . Referral None recorded . Procedures None recorded . Surgeries None recorded . Imaging None recorded . Medication Orders Medrol (Earl) 4 mg tablets in a dose pack 2023 024 [email or web address] [id number], [address] [place], [place], [phone], 04/30/2024 10:21:22 Patient TargetsNo targets recorded. Patient InstructionsNo instructions recorded. Reason for Referral None Reported. Results Created Date Observation Date Name Description Value Unit Range Abnormal Flag Note LastModifiedBy Organization Detail LastModifiedTime 04/09/20 24 04/09/2024 XR, foot, 2 view [email or web address] ?Encry pted=s hAaTro YD8dLq bEUv6g %2BXZw aYqtaq 0bqfl% 2Fg9IQ a4ajBk vP9nXo QUaueC m3YtLR FvZlgJ JJ8mAn HZtai3 9d4519 AC0Kqa X%2BGV 6OvKiQ trMwF INTERFACE [facility] [address] [facility] [address], [place], [address], 04/09/2024 08:54:19 04/09/20 24 04/09/2024 XR, foot, 2 view [email or web address]:/ [email or web address] ?Encry pted=s hAaTro YD8dLq bEUv6g %2BXZw aYqtaq 0bqfl% 2Fg9IQ a4ajBk vP9nXo QUaueC m3YtLR FvZl[address] HZtai3 9d2608 AC0Kqa X%2BGV 6OvKiQ trMwF INTERFACE [facility] [address], [place], [address], 04/09/2024 08:54:22 04/16/20 24 04/16/2024 XR, knee, 4 or more view [email or web address]:/ [email or web address] ?Encry pted=s hAaTro YD8dLq bEUv6g %2BXZw aYqtaq 0bqfl% 2Fg9IQ a4ajBk vP9nXo QUaueC m3YtLR FvZl[address] HZtai3 3a5613 AC0Kqa XiHWKq mKiQtr MwF INTERFACE [facility] [address] [place] [address], [place], [address], 04/16/2024 08:54:30 04/16/20 24 04/16/2024 XR, knee, 4 or more view [email or web address]:/ [email or web address] ?Encry pted=s hAaTro YD8dLq bEUv6g %2BXZw aYqtaq 0bqfl% 2Fg9IQ a4ajBk vP9nXo QUaueC m3YtLR FvZlgJ JJ8mAn HZtai3 7m3144 AC0Kqa XiHWKq mKiQtr MwF INTERFACE [facility] [address], [place], [address], 04/16/2024 08:54:32 04/16/20 24 04/16/2024 XR, elbow , 3 or more view [email or web address] ?Encry pted=s hAaTro YD8dLq bEUv6g %2BXZw aYqtaq 0bqfl% 2Fg9IQ a4ajBk vP9nXo QUaueC m3YtLR FvZlgJ JJ8mAn HZtai3 9i9315 AC0Kqa XiGUaK vKiQtr MwF INTERFACE [facility] [address], [place], [address], 04/16/2024 08:57:40 04/16/20 24 04/16/2024 XR, elbow , 3 or more view [email or web address] ?Encry pted=s hAaTro YD8dLq bEUv6g %2BXZw aYqtaq 0bqfl% 2Fg9IQ a4ajBk vP9nXo QUaueC m3YtLR FvZlgJ JJ8mAn HZtai3 0q2759 AC0Kqa XiGUaK vKiQtr MwF INTERFACE [facility] [address], [place], [address], 04/16/2024 08:57:43 04/22/20 24 04/21/2024 MRI, foot, w/o contr ast [facility] Access ion Number : [id number] Name: Riya Dumont l Record Number : [id number] Date of : 1950 Date of Exam: 2023 Referr ing Physic renae: Aaron Tay i [facility] ed[facility] Surgeo ns ([facility]) [address], [address] [place] [address] Exam: MR Foot (C-) CPT 85781 - Right Room Descri ption: [facility] 3T MRI RIGHT FOOT HISTOR Y: Pain [...] onical ly Signed By: Trudi Vernon MD [email or web address] [facility] ([facility]) [address], [place], [address], 05/06/2024 13:44:49 Result Notes None recorded. Problems Name Problem SNOMED Code Status Onset Date Resolution Date Notes Provider Name and Address Organization Details Recorded Time No complaint s 258121726 Active Status: 'I'; Not Available [facility] 4 09:16:47 Pain in elbow 30440458 Active 2023 Valorie salmon [place] - [facility] 4 08:48:27 Carpal tunnel syndrome of left wrist 976257860390 102 Active 2017 Problem Code: G56.02; Problem Code Type: ICD-10; Status: 'A'; Not Available [facility] 4 11:13:07 Trochante shannon bursitis of right hip 484151737381 100 Active 2017 Problem Code: M70.61; Problem Code Type: ICD-10; Status: 'A'; Not Available [facility] 4 11:13:07 Trochante shannon bursitis of left hip 778405696976 103 Active 2017 Problem Code: M70.62; Problem Code Type: ICD-10; Status: 'A'; Not Available [facility] 4 11:13:07 Idiopathi c osteoarth ritis 592628436 Active 2017 Problem Code: M18.12; Problem Code Type: ICD-10; Status: 'A'; Not Available [facility] 4 11:13:07 Joint derangeme nt 902746137 Active 2017 Problem Code: M24.832; Problem Code Type: ICD-10; Status: 'A'; Not Available [facility] 4 11:13:07 Problem Notes None recorded. Procedures Surgical History Date Name Laterality Status Provider Name and Address Organization Details Recorded Time 4 Hip Kenalog 1cc Injection, L/R completed Jane Drenga, MERCHANDISE EXECUTIVE [address], [place], [address], [facility] 05/01/2024 14:11:24 4 Hip Kenalog 1cc Injection, L/R completed Jane Drenga, MERCHANDISE EXECUTIVE [address], [place], [address], [facility] 11/07/2023 17:04:37 4 Hip Kenalog 1cc Injection, L/R completed Jane Drenga, MERCHANDISE EXECUTIVE [address], [place], [address], [facility] 09/17/2023 12:18:20 Imaging Results None recorded. Procedure Notes None recorded. Medical Equipment None Reported. Allergies Allergen ID Allergen Name Allergen Category Reaction Reaction Severity Criticality Documentation Date Start Date Code Code System Note Provider Name and Address Organization Details Recorded Time 56685 prednison e medicatio n Not available Not available Not available 07/23/20232022 8640 RxNorm Not Available [facility] 4 13:52:04 07902 Cipro medicatio n Not available Not available Not available 07/23/20232020 06164 3 RxNorm Not Available [facility] 4 13:52:04 83294 lisinopri l medicatio n Not available Not available Not available 07/23/20232020 97022 RxNorm Not Available [facility] 4 13:52:04 Medications Name Sig Start Date [...] Avai lable Vitals Date Recorded Body height Provider Name an d Address Organization Details Last Updated DateTime 04/30/2024 160.02 cm cindy quintana [place] [facility] 04/30/2024 08:50:45 Social History None recorded. Functional Status None recorded. Mental Status None recorded. Family History Nothing Reported. Medical History No medical history recorded. Gynecological HistoryNo gynecological history recorded. Obstetrics History GPAL:G 0 P 0 0 0 0 Past Encounters Encounter ID Performer Location Encounter Start Date Encounter Closed Date Diagnosis/Indication Diagnosis SNOMED-CT Code Diagnosis ICD10 Code Diagnosis Note [id number] [facility] [address] [place] [address] 04/09/2024 08:15:41 04/24/2024 11:11:44 Pain in right foot 3481846012 33746 M79.671 Arthritis of right foot 1623264039 016651 M19.815 [id number] [facility] [address] [place] [address] 04/16/2024 08:15:54 05/20/2024 12:14:40 History of left total knee replacement 1503640787 548055 Z96.652 Pain in elbow 19737797 M 25.522 Contusion of left knee 5710047332 8533180 S80.02XA Contusion of left elbow 5336295227 4698815 S50.02XA [id number] [facility] [address] [place] [address] 04/30/2024 08:44:20 05/29/2024 11:53:50 Arthritis of right foot 0755171130 223087 M19.071 Carpal susy trista syndrome of left wrist 4447489463 38891 G56.02 Health Concerns Section Related Observation LastModified by Organization Detai ls LastModified Time None Recorded Concern Status LastModified by Organization Details LastModified Time None Recorded Payers Encounter Date Sequence Insurance Name Policy Number Policy Singh Covered Member ID Singh Member ID Guarantor Name 04/30/2024 2 [employer] (MEDICARE SUPPLEMENT) Riya Dumont [id number] Riya Dumont 04/30/2024 1 [place] [employer] Riya Dumont [id number] Riya Dumont OBGyn Episode No OBEpisode recorded.
--- OUTSIDE RECORDS SUMMARY | 2024-06-03 09:06 | XMS_ITS ---
Author Name [facility] Organization Unknown History of Medication Use Medication Directions Dispensed Refills Start Date End Date Stat us loperamide (capsule) 2 mg 12/27/2023 completed diclofenac sodium (gel) 1 % 09/27/2023 completed alprazolam (tablet) 0.25 mg 09/27/2023 c ompleted tobramycin-dexameth asone (drops, suspension) 1 drop both eyes 3 times a day 09/27/2023 completed ipratropium bromide (spray,non-aerosol) 21 mcg (0.03 %) 09/27/2023 completed bisoprolol fumarate 09/27/2023 c ompleted glipizide (tablet) 5 mg 09/27/2023 co mpleted Eliquis (tablet) 5 mg 09/27/2023 comp leted diltiazem HCl (capsule,extended release 24hr) 180 mg 09/27/2023 completed triamterene-hydroch lorothiazid (tablet) 37.5-25 mg 09/27/2023 completed
== END 2024-06-03 09:53 | disposition home or self-care (01) ==
PROVIDERS: PCP Nurse Practitioner Family; Visit Provider Internal Medicine Rheumatology
DX: M19.041 Primary osteoarthritis, right hand (principal); M21.611 Bunion of right foot
CPT/HCPCS: 99213; G2211

== ENCOUNTER → 2024-06-03 08:43 | Outpatient (BNVA) | payer MEDICARE, SELFPAY | PROVIDERS: PCP Nurse Practitioner Family; Visit Provider Internal Medicine Rheumatology | DX: M19.041 Primary osteoarthritis, right hand (principal); M21.611 Bunion of right foot | CPT/HCPCS: 99212 ==

== ENCOUNTER 2024-06-05 12:27 | Outpatient (REF) | payer MEDICARE, SELFPAY ==
--- NOTE | ~2024-06-05 | XR_ITS ---
CLINICAL HISTORY: M21.611 - Bunion of right foot 3 view right foot Comparison: None Findings: Bones intact. No dislocations. Surgical hardware on the distal fibula and tibia No significant arthritic change or erosions. No ankle effusion. No either radiopaque foreign body. IMPRESSION: 1. No acute findings. This document has been electronically signed by: Leno Valera MD on 06/06/2024 08:30:32
--- NOTE | ~2024-06-05 | XR_ITS ---
CLINICAL HISTORY: M19.049 - Primary osteoarthritis, unspecified hand 3 view left hand Comparison: None Findings: Bones intact. No dislocations. There are changes of polyarticular osteoarthritis. No erosions. No radiopaque foreign body. IMPRESSION: 1. No acute findings This document has been electronically signed by: Leno Valera MD on 06/06/2024 08:34:13
--- NOTE | ~2024-06-05 | XR_ITS ---
CLINICAL HISTORY: M19.049 - Primary osteoarthritis, unspecified hand 3 view left hand Comparison: None Findings: No fractures or dislocations. Osteoarthritic changes most pronounced in the 1st carpometacarpal and multiple interphalangeal joints. No erosions. No radiopaque foreign body. IMPRESSION: 1. No acute findings This document has been electronically signed by: Leno Valera MD on 06/06/2024 08:33:45
--- OUTSIDE RECORDS SUMMARY | 2024-06-05 15:46 | XMS_ITS | Continuity of Care Document ---
Author Organization [place]EL[place] - [facility]geons [facility], [facility] Campos 1st Floor Address [address] [place] [address] Assessment Encounter Date Assessment Date Assessment LastModified [...] RECHECK 15 2024 08:30A M Jane Snider, JUYD Not available Not available Not available Lab None recorded. Referral None recorded. Procedures None recorded. Surgeries None recorded. Imaging None recorded. Medication Orders gabapenti n 100 mg capsule 2024 025 epacitti2 [id number], [address] [facility], [place], [place], [phone], 05/26/2024 11:52:41 Patient TargetsNo targets recorded. Patient InstructionsNo instructions recorded. Reason for Referral None Reported. Problems Name Problem SNOMED Code Status Onset Date Resolution Date Notes Provider Name and Address Organization Details Recorded Time No complaint s 711662702 Active Status: 'I'; Not Available [facility] 4 09:16:47 Pain in elbow 71718719 Active 2023 Valorie salmon [place] - [facility] 4 08:48:27 Carpal tunnel syndrome of left wrist 763207429770 102 Active 2017 Problem Code: G56.02; Problem Code Type: ICD-10; Status: 'A'; Not Available [facility] 4 11:13:07 Trochante shannon bursitis of right hip 510114881028 100 Active 2017 Problem Code: M70.61; Problem Code Type: ICD-10; Status: 'A'; Not Available [facility] 4 11:13:07 Trochante shannon bursitis of left hip 478088798156 103 Active 2017 Problem Code: M70.62; Problem Code Type: ICD-10; Status: 'A'; Not Available [facility] 4 11:13:07 Idiopathi c osteoarth ritis 279257425 Active 2017 Problem Code: M18.12; Problem Code Type: ICD-10; Status: 'A'; Not Available [facility] 4 11:13:07 Joint derangeme nt 411199953 Active 2017 Problem Code: M24.832; Problem Code Type: ICD-10; Status: 'A'; Not Available [facility] 4 11:13:07 Problem Notes None recorded. Procedures Surgical History Date Name Laterality Status Provider Name and Address Organization Details Recorded Time 4 Hip Kenalog 1cc Injection, L/R completed Jane Drenga, HEALTH AND SAFETY MANAGER [address], [place], [address], [facility] 05/01/2024 14:11:24 4 Hip Kenalog 1cc Injection, L/R completed Jane Drenga, HEALTH AND SAFETY MANAGER [address], [place], [address], [facility] 11/07/2023 17:04:37 4 Hip Kenalog 1cc Injection, L/R completed Jane Drenga, HEALTH AND SAFETY MANAGER [address], [place], [address], [facility] 09/17/2023 12:18:20 Imaging Results None recorded. Procedure Notes None recorded. Medical Equipment None Reported. Allergies Allergen ID Allergen Name Allergen Category Reaction Reaction Severity Criticality Documentation Date Start Date Code Code System Note Provider Name and Address Organization Details Recorded Time 14724 prednison e medicatio n Not available Not available Not available 07/23/20232022 8640 RxNorm Not Available [facility] 4 13:52:04 54108 Cipro medicatio n Not available Not available Not available 07/23/20232020 29800 3 RxNorm Not Available [facility] 13:52:04 77740 lisinopri l medicatio n Not available Not available Not available 07/23/20232020 25333 RxNorm Not Available [facility] 13:52:04 Medications Name Sig Start Date Stop [...] Updated DateTime 05/26/2024 160.02 cm 32.9 kg/m2 55978.18 g Bere Puckett [place] - [facility] 05/26/2024 08:44:06 Social History None recorded. Functional Status None recorded. Mental Status None recorded. Family History Nothing Reported. Medical History No medical history recorded. Gynecological HistoryNo gynecological history recorded. Obstetrics History GPAL:G 0 P 0 0 0 0 Past Encounters Encounter ID Performer Location Encounter Start Date Encounter Closed Date Diagnosis/Indication Diagnosis SNOMED-CT Code Diagnosis ICD10 Code Diagnosis Note [id number] [facility] 1st [address] [place] [address] 04/30/2024 08:44:20 05/29/2024 11:53:50 Arthritis of right foot 8792779057 627796 M19.071 Carpal susy trista syndrome of left wrist 7412149261 32187 G56.02 [id number] Jane Agatha, HEALTH AND SAFETY MANAGER [facility] [address]st [address] [place] [address] 05/02/2024 08:58:46 05/23/2024 07:19:39 [id number] Aaron Barajas PA-C [place] [facility] [place] 1st [address] [place] [address] 05/26/2024 08:34:55 06/05/2024 10:21:22 Pain in right foot 5985192291 34019 M79.671 Carpal susy trista syndrome of left wrist 2763197941 26325 G56.02 Arthritis of right foot 6587359539 410140 M19.071 Health Concerns Section Related Observation LastModified by Organization Detai ls LastModified Time None Recorded Concern Status LastModified by Organization Details LastModified Time None Recorded Payers Encounter Date Sequence Insurance Name Policy Number Policy Singh Covered Member ID Singh Member ID Guarantor Name 05/26/2024 2 [employer] (MEDICARE SUPPLEMENT) Riya Dumont [id number] Riya Dumont 05/26/2024 1 [place] [employer] Riya Dumont [id number] Riya Dumont OBGyn Episode No OBEpisode recorded.
--- OUTSIDE RECORDS SUMMARY | 2024-06-05 15:46 | XMS_ITS | Continuity of Care Document ---
Author Organization [place] - [facility], [facility] 1st Floor Address [address] [place] [address] Assessment Encounter Date Assessment Date Assessment LastModified [...] in a dose pack 2023 024 epacitti1 [facility][id number], [address], [place], [id number], 04/30/2024 10:21:22 Patient TargetsNo targets recorded. Patient InstructionsNo instructions recorded. Reason for Referral None Reported. Results Created Date Observation Date Name Description Value Unit Range Abnormal Flag Note LastModifiedBy Organization Detail LastModifiedTime 04/09/20 24 04/09/2024 XR, foot, 2 view [email or web address] ?Encry pted=s hAaTro YD8dLq bEUv6g %2BXZw aYqtaq 0bqfl% 2Fg9IQ a4ajBk vP9nXo QUaueC m3YtLR FvZlgJ JJ8mAn HZtai3 5d1001 AC0Kqa X%2BGV 6OvKiQ trMwF INTERFACE [facility] [address] [facility] [address], [place], [address], 04/09/2024 08:54:19 04/09/20 24 04/09/2024 XR, foot, 2 view [email or web address]:/ [email or web address] ?Encry pted=s hAaTro YD8dLq bEUv6g %2BXZw aYqtaq 0bqfl% 2Fg9IQ a4ajBk vP9nXo QUaueC m3YtLR FvZl[address] HZtai3 6j8373 AC0Kqa X%2BGV 6OvKiQ trMwF INTERFACE [facility] [address], [place], [address], 04/09/2024 08:54:22 04/16/20 24 04/16/2024 XR, knee, 4 or more view [email or web address]:/ [email or web address] ?Encry pted=s hAaTro YD8dLq bEUv6g %2BXZw aYqtaq 0bqfl% 2Fg9IQ a4ajBk vP9nXo QUaueC m3YtLR FvZl[address] HZtai3 9u8413 AC0Kqa XiHWKq mKiQtr MwF INTERFACE [facility] [address] [place] [address], [place], [address], 04/16/2024 08:54:30 04/16/20 24 04/16/2024 XR, knee, 4 or more view [email or web address]:/ [email or web address] ?Encry pted=s hAaTro YD8dLq bEUv6g %2BXZw aYqtaq 0bqfl% 2Fg9IQ a4ajBk vP9nXo QUaueC m3YtLR FvZlgJ JJ8mAn HZtai3 2s0456 AC0Kqa XiHWKq mKiQtr MwF INTERFACE [facility] [address], [place], [address], 04/16/2024 08:54:32 04/16/20 24 04/16/2024 XR, elbow , 3 or more view [email or web address] ?Encry pted=s hAaTro YD8dLq bEUv6g %2BXZw aYqtaq 0bqfl% 2Fg9IQ a4ajBk vP9nXo QUaueC m3YtLR FvZlgJ JJ8mAn HZtai3 1a2613 AC0Kqa XiGUaK vKiQtr MwF INTERFACE [facility] [address], [place], [address], 04/16/2024 08:57:40 04/16/20 24 04/16/2024 XR, elbow , 3 or more view [email or web address] ?Encry pted=s hAaTro YD8dLq bEUv6g %2BXZw aYqtaq 0bqfl% 2Fg9IQ a4ajBk vP9nXo QUaueC m3YtLR FvZlgJ JJ8mAn HZtai3 4i4189 AC0Kqa XiGUaK vKiQtr MwF INTERFACE [facility] [address], [place], [address], 04/16/2024 08:57:43 04/22/20 24 04/21/2024 MRI, foot, w/o contr ast [facility] Access ion Number : [id number] Divine t Name: Riya Dumont l Record Number : [id number] Date of : 1950 Date of Exam: 2023 Referr ing Physic renae: Aaron [facility] i [facility] ([facility]) [address], [address] [place] [address] Exam: MR Foot (C-) CPT 89644 - Right Room Descri ption: [facility] 3T MRI RIGHT FOOT HISTOR Y: [...] onical ly Signed By: Trudi Vernon MD [email or web address] [facility] ([facility]) [address], [place], [address], 05/06/2024 13:44:49 Result Notes None recorded. Problems Name Problem SNOMED Code Status Onset Date Resolution Date Notes Provider Name and Address Organization Details Recorded Time No complaint s 923713684 Active Status: 'I'; Not Available [facility] 4 09:16:47 Pain in elbow 25375608 Active 2023 Valorie salmon [place] - [facility] 4 08:48:27 Carpal tunnel syndrome of left wrist 554728665781 102 Active 2017 Problem Code: G56.02; Problem Code Type: ICD-10; Status: 'A'; Not Available [facility] 4 11:13:07 Trochante shannon bursitis of right hip 156650240707 100 Active 2017 Problem Code: M70.61; Problem Code Type: ICD-10; Status: 'A'; Not Available [facility] 4 11:13:07 Trochante shannon bursitis of left hip 144536071471 103 Active 2017 Problem Code: M70.62; Problem Code Type: ICD-10; Status: 'A'; Not Available [facility] 4 11:13:07 Idiopathi c osteoarth ritis 107057669 Active 2017 Problem Code: M18.12; Problem Code Type: ICD-10; Status: 'A'; Not Available [facility] 4 11:13:07 Joint derangeme nt 611598512 Active 2017 Problem Code: M24.832; Problem Code Type: ICD-10; Status: 'A'; Not Available [facility] 4 11:13:07 Problem Notes None recorded. Procedures Surgical History Date Name Laterality Status Provider Name and Address Organization Details Recorded Time 4 Hip Kenalog 1cc Injection, L/R completed Jane Drenga, HEALTH PSYCHOLOGIST [address], [place], [address], [facility] 05/01/2024 14:11:24 4 Hip Kenalog 1cc Injection, L/R completed Jane Drenga, HEALTH PSYCHOLOGIST [address], [place], [address], [facility] 11/07/2023 17:04:37 4 Hip Kenalog 1cc Injection, L/R completed Jane Drenga, HEALTH PSYCHOLOGIST [address], [place], [address], [facility] 09/17/2023 12:18:20 Imaging Results None recorded. Procedure Notes None recorded. Medical Equipment None Reported. Allergies Allergen ID Allergen Name Allergen Category Reaction Reaction Severity Criticality Documentation Date Start Date Code Code System Note Provider Name and Address Organization Details Recorded Time 64122 prednison e medicatio n Not available Not available Not available 07/23/20232022 8640 RxNorm Not Available [facility] 4 13:52:04 62530 Cipro medicatio n Not available Not available Not available 07/23/20232020 06843 3 RxNorm Not Available [facility] 4 13:52:04 50606 lisinopri l medicatio n Not available Not available Not available 07/23/20232020 19373 RxNorm Not Available [facility] 4 13:52:04 Medications Name Sig Start Date [...] DateTime 04/30/2024 160.02 cm cindy quintana [place] [facility] 04/30/2024 08:50:45 Social History None recorded. Functional Status None recorded. Mental Status None recorded. Family History Nothing Reported. Medical History No medical history recorded. Gynecological HistoryNo gynecological history recorded. Obstetrics History GPAL:G 0 P 0 0 0 0 Past Encounters Encounter ID Performer Location Encounter Start Date Encounter Closed Date Diagnosis/Indication Diagnosis SNOMED-CT Code Diagnosis ICD10 Code Diagnosis Note [id number] [facility] 1st [address] [place] [address] 04/09/2024 08:15:41 04/24/2024 11:11:44 Pain in right foot 2327058434 29324 M79.671 Arthritis of right foot 7991065258 787318 M19.369 [id number] [facility] Gomez 1st [address] [place] [address] 04/16/2024 08:15:54 05/20/2024 12:14:40 History of left total knee replacement 7138680998 159053 Z96.652 Pain in elbow 57331544 M 25.522 Contusion of left knee 3313440022 8395584 S80.02XA Contusion of left elbow 2802375672 9814643 S50.02XA [id number] [facility] Jim[facility] 1[address] [place] [address] 04/30/2024 08:44:20 05/29/2024 11:53:50 Arthritis of right foot 3399770520 935037 M19.071 Carpal susy trista syndrome of left wrist 5027758219 92669 G56.02 Health Concerns Section Related Observation LastModified by Organization Detai ls LastModified Time None Recorded Concern Status LastModified by Organization Details LastModified Time None Recorded Payers Encounter Date Sequence Insurance Name Policy Number Policy Singh Covered Member ID Singh Member ID Guarantor Name 04/30/2024 2 [employer] (MEDICARE SUPPLEMENT) Riya Dumont [id number] Riya Dumont 04/30/2024 1 [place] [employer]MENT [employer] Riya Dumont [id number] Riya Dumont OBGyn Episode No OBEpisode recorded.
--- OUTSIDE RECORDS SUMMARY | 2024-06-05 15:46 | XMS_ITS | Continuity of Care Document ---
Author Organization [facility], [facility] [place] 1st Floor Address [address] [place] [address] Assessment No assessment recorded. Plan of Treatment [...] a4ajBk vP9nXo QUaueC m3YtLR FvZlgJ JJ8mAn HZtai3 3g1683 AC0Kqa X%2BGV 6OvKiQ trMwF INTERFACE [facility] [place] [facility] [address], [place], [address], 04/09/2024 08:54:19 04/09/20 24 04/09/2024 XR, foot, 2 view [email or web address]:/ [email or web address] ?Encry pted=s hAaTro YD8dLq bEUv6g %2BXZw aYqtaq 0bqfl% 2Fg9IQ a4ajBk vP9nXo QUaueC m3YtLR FvZlg [address]ta[address] [address]73 AC0Kqa X%2BGV 6OvKiQ trMwF INTERFACE [facility] [address], [place], [address], 04/09/2024 08:54:22 04/16/20 24 04/16/2024 XR, knee, 4 or more view [email or web address]:/ [email or web address] ?Encry pted=s hAaTro YD8dLq bEUv6g %2BXZw aYqtaq 0bqfl% 2Fg9IQ a4ajBk vP9nXo QUaueC m3YtLR FvZl20 [address] Streetta[address] 4s6974 AC0Kqa XiHWKq mKiQtr MwF INTERFACE [facility] [address] [facility] [address], [place], [address], 04/16/2024 08:54:30 04/16/20 24 04/16/2024 XR, knee, 4 or more view [email or web address]:/ [email or web address] ?Encry pted=s hAaTro YD8dLq bEUv6g %2BXZw aYqtaq 0bqfl% 2Fg9IQ a4ajBk vP9nXo QUaueC m3YtLR FvZl20 [address] Streettai 4w8956 AC0Kqa XiHWKq mKiQtr MwF INTERFACE [facility] [address] [facility] [address], [place], [address], 04/16/2024 08:54:32 04/16/20 24 04/16/2024 XR, elbow , 3 or more view [email or web address]:/ [email or web address] ?Encry pted=s hAaTro YD8dLq bEUv6g %2BXZw aYqtaq 0bqfl% 2Fg9IQ a4ajBk vP9nXo QUaueC m3YtLR FvZlg JJ8mAn HZtai3 0a0235 AC0Kqa XiGUaK vKiQtr MwF INTERFACE [facility] [address], [place], [address], 04/16/2024 08:57:40 04/16/20 24 04/16/2024 XR, elbow , 3 or more view [email or web address] ?Encry pted=s hAaTro YD8dLq bEUv6g %2BXZw aYqtaq 0bqfl% 2Fg9IQ a4ajBk vP9nXo QUaueC m3YtLR FvZlgJ JJ8mAn HZtai3 7q7110 AC0Kqa XiGUaK vKiQtr MwF INTERFACE [facility] [address], [place], [address], 04/16/2024 08:57:43 04/22/20 24 04/21/2024 MRI, foot, w/o contr ast [facility] Access ion Number : [id number] Patien t Name: Julia Riya Martinez l Record Number : [id number] Date of : 1950 Date of Exam: 2023 Referr ing Physic renae: Aaron Tay i Orthop edic Surgeo ns ([facility]) [address], [address] [place] [address] Exam: MR Foot (C-) CPT 09283 - Right Room Descri ption: [facility] 3T MRI RIGHT FOOT HISTOR Y: Pain [...] onical ly Signed By: Trudi Vernon MD [email or web address] [facility] ([facility]) [address], [place], [address], 05/06/2024 13:44:49 Result Notes None recorded. Problems Name Problem SNOMED Code Status Onset Date Resolution Date Notes Provider Name and Address Organization Details Recorded Time No complaint s 825935258 Active Status: 'I'; Not Available [facility] 4 09:16:47 Pain in elbow 45511177 Active 2023 Valorie salmon [place] - [facility] 4 08:48:27 Carpal tunnel syndrome of left wrist 151149885248 102 Active 2017 Problem Code: G56.02; Problem Code Type: ICD-10; Status: 'A'; Not Available [facility] 4 11:13:07 Trochante shannon bursitis of right hip 989958614280 100 Active 2017 Problem Code: M70.61; Problem Code Type: ICD-10; Status: 'A'; Not Available [facility] 4 11:13:07 Trochante shannon bursitis of left hip 654726142554 103 Active 2017 Problem Code: M70.62; Problem Code Type: ICD-10; Status: 'A'; Not Available [facility] 4 11:13:07 Idiopathi c osteoarth ritis 947418607 Active 2017 Problem Code: M18.12; Problem Code Type: ICD-10; Status: 'A'; Not Available [facility] 4 11:13:07 Joint derangeme nt 063437809 Active 2017 Problem Code: M24.832; Problem Code Type: ICD-10; Status: 'A'; Not Available [facility] 4 11:13:07 Problem Notes None recorded. Procedures Surgical History Date Name Laterality Status Provider Name and Address Organization Details Recorded Time 4 Hip Kenalog 1cc Injection, L/R completed Jane Snider, DIRECTOR PLANS [address], [place], [address], [facility] - [facility] 05/01/2024 14:11:24 4 Hip Kenalog 1cc Injection, L/R completed Jane Snider, DIRECTOR PLANS [address], [place], [address], [facility] 11/07/2023 17:04:37 4 Hip Kenalog 1cc Injection, L/R completed Jane Galveza, DIRECTOR PLANS [address], [place], [address], [facility] 09/17/2023 12:18:20 Imaging Results None recorded. Procedure Notes None recorded. Medical Equipment None Reported. Allergies Allergen ID Allergen Name Allergen Category Reaction Reaction Severity Criticality Documentation Date Start Date Code Code System Note Provider Name and Address Organization Details Recorded Time 00533 prednison e medicatio n Not available Not available Not available 07/23/20232022 8640 RxNorm Not Available [facility] 4 13:52:04 50809 Cipro medicatio n Not available Not available Not available 07/23/20232020 70280 3 RxNorm Not Available [facility] 4 13:52:04 70010 lisinopri l medicatio n Not available Not available Not available 07/23/20232020 08156 RxNorm Not Available [facility] 4 13:52:04 Medications Name Sig Start Date [...] Updated DateTime 05/02/2024 160.02 cm 32.9 kg/m2 91397.18 g MARY ALONZO [place] - [facility] 05/02/2024 09:44:59 Social History None recorded. Functional Status None recorded. Mental Status None recorded. Family History Nothing Reported. Medical History No medical history recorded. Gynecological HistoryNo gynecological history recorded. Obstetrics History GPAL:G 0 P 0 0 0 0 Past Encounters Encounter ID Performer Location Encounter Start Date Encounter Closed Date Diagnosis/Indication Diagnosis SNOMED-CT Code Diagnosis ICD10 Code Diagnosis Note [id number] [facility] [address] [place] [address] 04/09/2024 08:15:41 04/24/2024 11:11:44 Pain in right foot 0547306733 78576 M79.671 Arthritis of right foot 5808253125 056781 M19.155 [id number] [facility] Gomez [address] [place] [address] 04/16/2024 08:15:54 05/20/2024 12:14:40 History of left total knee replacement 9495257659 941850 Z96.652 Pain in elbow 62541193 M 25.522 Contusion of left knee 1757433780 1822815 S80.02XA Contusion of left elbow 0698007623 5198942 S50.02XA [id number] [facility] [address] [place] [address] 04/30/2024 08:44:20 05/29/2024 11:53:50 Arthritis of right foot 4987620150 644882 M19.071 Carpal susy trista syndrome of left wrist 4559859257 89937 G56.02 [id number] Jane Snider, JUDY [facility] [address] [place] [address] 05/02/2024 08:58:46 05/23/2024 07:19:39 Health Concerns Section Related Observation LastModified by Organization Detai ls LastModified Time None Recorded Concern Status LastModified by Organization Details LastModified Time None Recorded Payers Encounter Date Sequence Insurance Name Policy Number Policy Singh Covered Member ID Singh Member ID Guarantor Name 05/02/2024 2 [employer] (MEDICARE SUPPLEMENT) Riya Saldana Julia [id number] Riya Shana Dumont 05/02/2024 1 [place] B-[place] [facility] G[facility]ERNMENT SERVICES Riya Shana Dumont [id number] Riya Dumont Notes Date Note Type Note Provider Name and Address Organization Details Recorded Time 05/02/2024 text/html Riya is a 73 ye ar old female who is here for follow up of her left hip. She has known trochanteric bursitis and has had previous cortisone injection which gave good relief. She is here for follow up. Jane Snider, JUDY [address], [place], [address], [facility] - [facility] 05/02/2024 12:12:29 OBGyn Episode No OBEpisode recorded.
--- OUTSIDE RECORDS SUMMARY | 2024-06-05 15:47 | XMS_ITS | Continuity of Care Document ---
Author Organization [place] - [facility], [place] 1st Floor Address [address] [place] [address] Assessment Encounter Date Assessment Date Assessment LastModified by Organization Details LastModified Time 03/05/2024 03/05/2024 I am seeing the patient today under the supervision of Dr. Go was available but who did not see the patient. HPI: 73-year-old female presents today for chief complaint bilateral great toe pain, right greater than left. She states that she has significant arthritis. Many joints. Hands knees. She status post left total knee arthroplasty. Progressing over the last several months she has had increasing bilateral foot pain. She describes medial distal foot pain, primarily centered in the region of the first MTP, right greater than left. It bothers her with pushing off activities. She denies numbness or tingling. She has had no treatment. Past family, medical, social history and review of systems has been reviewed, updated and is located in the patient? s chart. Examination: the patient is alert and cooperative in no acute distress. Afebrile, vital signs stable. There is active ROM of the hips and knees, calves are soft and nontender area does active range of motion of both ankles slightly restricted motion, ankle dorsiflexion at extremes. His tibiotalar tenderness to palpation. Feet are aligned well. There is slightly limited motion of the MCPs of both great toes with slight limitation in extension. No tenderness in the area sesamoids. There is no mid-arch tenderness. No pain generated with passive motion. MTPs felt a bit proximally. No tenderness on today's exam the TMT joints. X-rays ordered, obtained and reviewed at [facility] 3 views of each foot and ankle were obtained today. There has been an ORIF of the right ankle. Joint spaces are reasonably maintained. Her overall foot alignment is reasonable. There are small spurs of the plantar os calcis and insertional Achilles region. There may be some early medial narrowing of the right first MTP Impression: Bilateral hallux rigidus Plan: Modifier discussed the patient. I would suggest a trial of a [place] insert with addition of a well arch shoe. She will recheck with me. [email or web address] Not available 03/05/2024 09:08:34 Plan of Treatment Reminders Order Date Submit Date Provider Last Modified By Organization Details Last Modified Time Details Appointments RECHECK 15 2024 08:30A M Jane Snider, JUDY Not available Not available Not available Lab None recorded . Referral None recorded . Procedures None recorded . Surgeries None recorded . Imaging XR, foot, 3 or more view - room 110 new 3v foot 2v ankle wb [address], 300 [facility] Bernardo, [address], [address], 03/05/2024 10:56:51 XR, ankle, 2 view - room 110 new 3v foot 2v ankle wb [address], 300 [facility], [facility] [address], [place], [address], 03/05/2024 10:56:51 Medication Orders None recorded . Patient TargetsNo targets recorded. Patient InstructionsNo instructions recorded. Reason for Referral None Reported. Results Created Date Observation Date Name Description Value Unit Range Abnormal Flag Note LastModifiedBy Organization Detail LastModifiedTime 02/27/20 24 02/27/2024 XR, knee, 3 view [email or web address] ?Encry pted=s hAaTro YD8dLq bEUv6g %2BXZw aYqtaq 0bqfl% 2Fg9IQ a4ajBk vP9nXo QUaueC m3YtLR FvZlgJ JJ8mAn HZtai3 8y1474 AC0Kqa 3mMV6q iKiQtr MwF INTERFACE [facility] [address], [place], [address], 02/27/2024 16:22:40 02/27/2002/27/2024 XR, knee, 3 view [email or web address] ?Encry pted=s hAaTro YD8dLq bEUv6g %2BXZw aYqtaq 0bqfl% 2Fg9IQ a4ajBk vP9nXo QUaueC m3YtLR FvZlJ JJ8mAn HZtai3 1a7901 AC0Kqa 3mMV6q iKiQtr MwF INTERFACE [facility] [address], [place], [address], 02/27/2024 16:22:42 03/05/20 24 03/05/2024 XR, foot, 3 or more view [email or web address] ?Encry pted=s hAaTro YD8dLq bEUv6g %2BXZw aYqtaq 0bqfl% 2Fg9IQ a4ajBk vP9nXo QUaueC m3YtLR FvZlJ JJ8mAn HZtai3 8y2700 AC0Kqa 3qFUKa gKiQtr MwF INTERFACE [facility] [address] [place] [address], [place], [address], 03/05/2024 08:45:40 03/05/20 24 03/05/2024 XR, foot, 3 or more view [email or web address] ?Encry pted=s hAaTro YD8dLq bEUv6g %2BXZw aYqtaq 0bqfl% 2Fg9IQ a4ajBk vP9nXo QUaueC m3YtLR FvZlgJ JJ8mAn HZtai3 5f8846 AC0Kqa 3qFUKa gKiQtr MwF INTERFACE [facility] [address], [place], [address], 03/05/2024 08:45:42 03/05/20 24 03/05/2024 XR, ankle , 2 view [email or web address] ?Encry pted=s hAaTro YD8dLq bEUv6g %2BXZw aYqtaq 0bqfl% 2Fg9IQ a4ajBk vP9nXo QUaueC m3YtLR FvZlg JJ8mAn HZtai3 2o4952 AC0Kqa 3qFUKa hKiQtr MwF INTERFACE [facility] [address], [place], [address], 03/05/2024 08:46:38 03/05/2003/05/2024 XR, ankle , 2 view [email or web address]:/ [email or web address] ?Encry pted=s hAaTro YD8dLq bEUv6g %2BXZw aYqtaq 0bqfl% 2Fg9IQ a4ajBk vP9nXo QUaueC m3YtLR FvZl JJ8mAn HZtai3 0l5126 AC0Kqa 3qFUKa hKiQtr MwF INTERFACE [facility] [address], [place], [address], 03/05/2024 08:46:40 04/09/20 24 04/09/2024 XR, foot, 2 view [email or web address] ?Encry pted=s hAaTro YD8dLq bEUv6g %2BXZw aYqtaq 0bqfl% 2Fg9IQ a4ajBk vP9nXo QUaueC m3YtLR FvZl JJ8mAn HZtai3 6b1168 AC0Kqa X%2BGV 6OvKiQ trMwF INTERFACE [facility] [address], [place], [address], 04/09/2024 08:54:19 04/09/20 24 04/09/2024 XR, foot, 2 view [email or web address]:/ [email or web address] ?Encry pted=s hAaTro YD8dLq bEUv6g %2BXZw aYqtaq 0bqfl% 2Fg9IQ a4ajBk vP9nXo QUaueC m3YtLR FvZl JJ8Burdett HZtai3 2t4013 AC0Kqa X%2BGV 6OvKiQ trMwF INTERFACE [facility] [address], [place], [address], 04/09/2024 08:54:22 04/16/20 24 04/16/2024 XR, knee, 4 or more view [email or web address]:/ [email or web address] ?Encry pted=s hAaTro YD8dLq bEUv6g %2BXZw aYqtaq 0bqfl% 2Fg9IQ a4ajBk vP9nXo QUaueC m3YtLR FvZl53 Myers Streettai3 3h8462 AC0Kqa XiHWKq mKiQtr MwF INTERFACE [facility] [address] [facility] [address] [facility] [address], [place], [address], 04/16/2024 08:54:30 04/16/20 24 04/16/2024 XR, knee, 4 or more view [email or web address]:/ [email or web address] ?Encry pted=s hAaTro YD8dLq bEUv6g %2BXZw aYqtaq 0bqfl% 2Fg9IQ a4ajBk vP9nXo QUaueC m3YtLR FvZl JJ8mAn HZtai3 6d6111 AC0Kqa XiHWKq mKiQtr MwF INTERFACE [facility] [address], [place], [address], 04/16/2024 08:54:32 04/16/20 24 04/16/2024 XR, elbow , 3 or more view [email or web address] ?Encry pted=s hAaTro YD8dLq bEUv6g %2BXZw aYqtaq 0bqfl% 2Fg9IQ a4ajBk vP9nXo QUaueC m3YtLR FvZlgJ JJ8mAn HZtai3 7j3765 AC0Kqa XiGUaK vKiQtr MwF INTERFACE [facility] [address], [place], [address], 04/16/2024 08:57:40 04/16/20 24 04/16/2024 XR, elbow , 3 or more view [email or web address] ?Encry pted=s hAaTro YD8dLq bEUv6g %2BXZw aYqtaq 0bqfl% 2Fg9IQ a4ajBk vP9nXo QUaueC m3YtLR FvZlgJ JJ8mAn HZtai3 0d6965 AC0Kqa XiGUaK vKiQtr MwF INTERFACE [facility] [address], [place], [address], 04/16/2024 08:57:43 04/22/20 24 04/21/2024 MRI, foot, w/o contr ast [facility] Access ion Number : [id number] Divine jim Name: Riya Dumont Record Number : [id number] Date of : 1950 Date of Exam: 2023 Referr ing Physic renae: [facility] [address], [address] [place] [address] Exam: MR Foot (C-) CPT 61982 - Right Room Descri ption: [facility] Pion 3T MRI RIGHT FOOT HISTOR Y: [...] onical ly Signed By: Trudi Vernon MD [email or web address] [facility] [address], [place], [address], 05/06/2024 13:44:49 Result Notes None recorded. Problems Name Problem SNOMED Code Status Onset Date Resolution Date Notes Provider Name and Address Organization Details Recorded Time No complaint s 229503818 Active Status: 'I'; Not Available [facility] 4 09:16:47 Pain in elbow 82765769 Active 2023 Valorie salmon [place] - [facility] 4 08:48:27 Carpal tunnel syndrome of left wrist 392965339942 102 Active 2017 Problem Code: G56.02; Problem Code Type: ICD-10; Status: 'A'; Not Available [facility] 4 11:13:07 Trochante shannon bursitis of right hip 370415257163 100 Active 2017 Problem Code: M70.61; Problem Code Type: ICD-10; Status: 'A'; Not Available [facility] hospital 4 11:13:07 Trochante shannon bursitis of left hip 521113209486 103 Active 2017 Problem Code: M70.62; Problem Code Type: ICD-10; Status: 'A'; Not Available [facility] 4 11:13:07 Idiopathi c osteoarth ritis 836131936 Active 2017 Problem Code: M18.12; Problem Code Type: ICD-10; Status: 'A'; Not Available [facility] 4 11:13:07 Joint derangeme nt 874203357 Active 2017 Problem Code: M24.832; Problem Code Type: ICD-10; Status: 'A'; Not Available [facility] 4 11:13:07 Problem Notes None recorded. Procedures Surgical History Date Name Laterality Status Provider Name and Address Organization Details Recorded Time 4 Hip Kenalog 1cc Injection, L/R completed Jane Drenga, [employer] W[employer] OPERATOR [address], [place], [address], [facility] 05/01/2024 14:11:24 4 Hip Kenalog 1cc Injection, L/R completed Jane Drenga, TANK WAGON OPERATOR [address], [place], [address], [facility] - [facility] 11/07/2023 17:04:37 4 Hip Kenalog 1cc Injection, L/R completed Jane Kirknga, TANK WAGON OPERATOR [address], [place], [address], [facility] 09/17/2023 12:18:20 Imaging Results None recorded. Procedure Notes None recorded. Medical Equipment None Reported. Allergies Allergen ID Allergen Name Allergen Category Reaction Reaction Severity Criticality Documentation Date Start Date Code Code System Note Provider Name and Address Organization Details Recorded Time 29289 prednison e medicatio n Not available Not available Not available 07/23/20232022 8640 RxNorm Not Available Critical [facility] hospital 4 13:52:04 99447 Cipro medicatio n Not available Not available Not available 07/23/20232020 98390 3 RxNorm Not Available Critical [facility] hospital 4 13:52:04 46655 lisinopri l medicatio n Not available Not available Not available 07/23/20232020 97368 RxNorm Not Available Critical [facility] hospital 4 13:52:04 Medications Name Sig Start [...] and Address Organization Details Last Updated DateTime 03/05/2024 160.02 cm 32.9 kg/m2 12556.18 g Aimee north [place] - [facility] 03/05/2024 08:39:18 Social History None recorded. Functional Status None recorded. Mental Status None recorded. Family History Nothing Reported. Medical History No medical history recorded. Gynecological HistoryNo gynecological history recorded. Obstetrics History GPAL:G 0 P 0 0 0 0 Past Encounters Encounter ID Performer Location Encounter Start Date Encounter Closed Date Diagnosis/Indication Diagnosis SNOMED-CT Code Diagnosis ICD10 Code Diagnosis Note [id number] Jane Snider, JUDY [facility] 1st Floor [address] [place] [address] 02/27/2024 15:57:30 03/18/2024 09:08:18 History of total knee arthroplasty 5234570558 105 Z96.409 [id number] [facility] [address] [place] [address] 03/05/2024 08:23:39 03/24/2024 10:49:58 Pain in both feet 9901061438 5412672 M79.671 M79.672 Toe joint rigid 08964746 4 M20.21 M20.22 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 2490005578 0132506 M20.21 M20.22 Health Concerns Section Related Observation LastModified by Organization Detai ls LastModified Time None Recorded Concern Status LastModified by Organization Details LastModified Time None Recorded Payers Encounter Date Sequence Insurance Name Policy Number Policy Singh Covered Member ID Singh Member ID Guarantor Name 03/05/2024 1 [place] [employer] Riya Dumont [id number] Riya Dumont 03/05/2024 2 [place] [id number] Riya Dumont [id number] Riya Dumont OBGyn Episode No OBEpisode recorded.
== END 2024-06-05 12:28 | disposition home or self-care (01) ==
LOC: HO.XRAY 12:27
PROVIDERS: PCP Nurse Practitioner Family; Visit Provider Internal Medicine Rheumatology
DX: M21.611 Bunion of right foot (principal); M19.042 Primary osteoarthritis, left hand; M19.041 Primary osteoarthritis, right hand
CPT/HCPCS: 73130; 73620

== ENCOUNTER → 2024-06-05 12:34 | Outpatient (BNV) | payer MEDICARE, SELFPAY | PROVIDERS: PCP Nurse Practitioner Family; Visit Provider Specialist | DX: M18.0 Bilateral primary osteoarthritis of first carpometacarpal joints (principal); M21.611 Bunion of right foot | CPT/HCPCS: 73130; 73620 ==

== ENCOUNTER 2024-06-18 09:01 | Outpatient (AMB) | payer MEDICARE, SELFPAY ==
[2024-06-18 09:04] VITALS: BP 128/68; PULSE 75; O2SAT 98; BMI 34.3
--- NOTE | 2024-06-18 09:04 | A.OFFVIS_ITS ---
Vital Signs 06/18/24 09:04 Height 5 ft 4 in Weight 200 lb 2 oz BMI 34.3 BP 128/68 Blood Pressure Location Lt brachial Position Sitting Pulse 75 Pulse Source Pulse Oximeter Pulse Oximetry (%) 98 Oxygen Delivery Method Room Air Intake Visit Reasons: Follow up 1-2 weeks Intake Note: Patient presents for follow up on osteoarthritis and right foot bunion today. She was last seen in the office by Dr. Bonner on 06/03/24. Allergies ciprofloxacin [From Cipro] Allergy (Mild, Verified 06/18/24 09:09) rash prednisone Allergy (Mild, Verified 06/18/24 09:09) Itching Sulfa (Sulfonamide Antibiotics) Allergy (Mild, Verified 06/18/24 09:09) Rash acetaminophen [From Percocet] Adverse Reaction (Mild, Verified 06/18/24 09:09) itchiness albuterol Adverse Reaction (Mild, Verified 06/18/24 09:09) can't breathe high blood pressure oxycodone Adverse Reaction (Mild, Verified 06/18/24 09:09) itchiness tramadol Adverse Reaction (Mild, Verified 06/18/24 09:09) headache, nausea HPI HPI Follow up 1-2 weeks: Details: She continues to have hand pain. At rest or with activity she has acute pain in her right 1st toe. It occurs on random onset. [facility] Medical History (Updated 06/18/24 @ 10:06 by Marino Bonner MD) Encounter for colonoscopy following surgery for colon cancer Surgical History (Updated 06/03/24 @ 09:15 by Yesy Shah CMA) History of total left knee replacement (TKR) History of cholecystectomy Review of Systems Const All systems reviewed & are unremarkable except as noted in HPI and below Physical Exam Vital Signs: Last Vital Signs Pulse 75 06/18/24 09:04 BP 128/68 06/18/24 09:04 Pulse Ox 98 06/18/24 09:04 Oxygen Delivery Method Room Air 06/18/24 09:04 BMI result Body Mass Index 34.3 Const Other: General: Comfortable Skin: No lesions seen MSK: Tender PIPs. No synovitis present. She has subluxation of DIPJ. Heberden nodes and Jesus's nodes present. Hallux valgus deformity present with tenderness on palpation on right side. Office Procedures AMB Joint Injection/Aspiration Joint Injection/Aspiration Details: Right 1st MTP Prep: site was prepped using aseptic technique Injected: 10 mg of, Kenalog, with 0.25 mL of and 1% plain lidocaine Procedure: The patient tolerated the procedure well. Postprocedure protocol was discussed with patient. Coding 81701 - Small Joint Procedure code (CPT) selection complete Office Meds lidocaine (PF) 10 mg/mL (1 %) injection solution Performing Provider: Marino Bonner MD Performing Location: [facility] Administered by: Marino Bonner MD on 06/18/24 10:06 Dose Route Admin Location Dispensed Lot Number Expiration Date [facility] Hair Stylist 2.5 mg Infiltration 5 mL [id number] HUONS/REBECCA Kenalog 40 mg/mL suspension for injection Performing Provider: Marino Bonner MD Performing Location: [facility] Administered by: Marino Bonner MD on 06/18/24 10:06 Dose Route Admin Location Dispensed Lot Number Expiration Date [facility] Hair Stylist 10 mg intra-articular 1 mL [id number] [employer] Assessment & Plan Assessment & Plan (1) Erosive osteoarthritis of hand: Comment: Of bilateral hands. Chronic. We discussed diagnosis and management. Contraind ication to oral NSAIDs due to concurrent use of anticoagulation apixaban. Failed Tylenol. Discussed side effects, benefits and drug monitoring on hydroxychloroquine. Code(s): M15.4 - Erosive (osteo)arthritis Category: Medical Plan: Baseline labs prior to starting hydroxychloroquine ordered. After lab results are back, we will send prescription for 400 mg daily. Patient will start prescription after she returns from her trip at the end of June. OT ordered to improve hand strength. Patient prefers to go to a facility outside of [facility]. Requisition given to patient. Return to clinic end of September. (2) Bunion, right foot: Comment: Pain is uncontrolled. X-ray reviewed with patient. She has minimal degenerative changes of right 1st MTP. Code(s): M21.611 - Bunion of right foot Category: Medical Plan: Patient received intra-articular cortisone injection to right 1st MTP. Return to clinic 3 months Orders: Orders Alanine Aminotransferase Today M15.4 - Erosive (osteo)arthritis Creatinine Today M15.4 - Erosive (osteo)arthritis C Reactive Protein Today M15.4 - Erosive (osteo)arthritis T Spot TB Today M15.4 - Erosive (osteo)arthritis Hepatitis B,C Profile Today M15.4 - Erosive (osteo)arthritis Tcjrgac-4-Wyntuiibh Dehydrogen Today M15.4 - Erosive (osteo)arthritis Aspartate Amino Transferase Today M15.4 - Erosive (osteo)arthritis Erythrocyte Sedimentation Rate Today M15.4 - Erosive (osteo)arthritis Complete Blood Count Auto Diff Today M15.4 - Erosive (osteo)arthritis AMB Joint Injection/Aspiration Today M21.611 - Bunion of right foot Medications: New lidocaine (PF) 2.5 mg (0.25 mL) Infiltration ONCE 0.25 mL 0RF M21.611 - Bunion of right foot Kenalog (triamcinolone acetonide) 10 mg (0.25 mL) intra-articular ONCE 0.25 mL 0RF NS M21.611 - Bunion of right foot Coding Level of Care Code Est Pt Level 4 (44234) Complex EM visit Add On G2211 Diagnoses Erosive osteoarthritis of hand M15.4 Bunion, right foot M21.611 CPT Codes Coding - - Small joint: - Small Joint ([id number])
--- OUTSIDE RECORDS SUMMARY | 2024-06-18 10:17 | XMS_ITS | Data Portability ---
Author Organization [place] - [facility], [facility] Address [address] [place] [address] Assessment Encounter Date Assessment Date Assessment LastModified [...] IP changes of digits. 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 She denies numbness or tingling. She has seen a lead esthetician in the past and has been discharged [...] bilaterally X-rays ordered, obtained and reviewed at [facility]. Single AP film was normal. The right foot today to rule out stress fracture was negative. Impression: Right foot pain, question first TMT arthritis. Plan:I recommended gastroc stretching, use of anti-inflammatory cream. A CT scan will be obtained to assess her right foot for lytic change. She will recheck with me chanelle Not available 04/09/2024 09:09:19 04/30/2024 04/30/2024 I am seeing the patient [...] and elbow care as per her symptoms. [email or web address] Not available 04/30/2024 09:32:23 05/26/2024 05/26/2024 I am seeing the patient [...] RECHECK 15 2024 08:30A M Jane Snider, LEAD PROCESS ENGINEER Not available Not available Not available Lab None recorded. Referral None recorded. Procedures None recorded. Surgeries None recorded. Imaging XR, foot, 2 view - rm 110 right foot ap view only 2023 024 [place] [address] [facility], [address], [place], [address], 04/09/2024 09:53:22 MRI, foot, w/o contrast - RIGHT FOOT EVAL TMT ARTHRITIS PAIN,SWEL LING 2023 024 [facility] ([facility]), [address], [place], [address], 04/22/2024 15:50:53 XR, knee, 4 or more view - LTKR 12/06/22. Dr. Blum Rm 108 2023 024 [email or web address], [address], [place], [address], 04/16/2024 11:48:51 XR, elbow, 3 or more view - lft elbow pain rm 108 2023 024 [email or web address], [address], [place], [address], 04/16/2024 11:48:51 Medication Orders Voltaren Arthritis Pain 1 % topical gel 2023 024 [id number], [address], [place], [id number], 04/09/2024 09:53:22 Medrol (Earl) 4 mg tablets in a dose pack 2023 024 [facility][id number], [address], [place], [phone], 04/30/2024 10:21:22 gabapenti n 100 mg capsule 2024 025 [email or web address] [id number], [address], [place], [id number], 05/26/2024 11:52:41 Patient TargetsNo targets recorded. Patient InstructionsNo instructions recorded. Reason for Referral None Reported. Results Created Date Observation Date Name Description Value Unit Range Abnormal Flag Note LastModifiedBy Organization Detail LastModifiedTime 04/09/20 24 04/09/2024 XR, foot, 2 view [email or web address]:/ [email or web address] ?Encry pted=s hAaTro YD8dLq bEUv6g %2BXZw aYqtaq 0bqfl% 2Fg9IQ a4ajBk vP9nXo QUaueC m3YtLR FvZlgJ JJ8mAn HZtai3 8a5048 AC0Kqa X%2BGV 6OvKiQ trMwF INTERFACE [facility] [address], [place], [address], 04/09/2024 08:54:19 04/09/20 24 04/09/2024 XR, foot, 2 view [email or web address] ?Encry pted=s hAaTro YD8dLq bEUv6g %2BXZw aYqtaq 0bqfl% 2Fg9IQ a4ajBk vP9nXo QUaueC m3YtLR FvZlgJ JJ8mAn HZtai3 0f1110 AC0Kqa X%2BGV 6OvKiQ trMwF INTERFACE [facility] [address], [place], [address], 04/09/2024 08:54:22 04/16/20 24 04/16/2024 XR, knee, 4 or more view [email or web address] ?Encry pted=s hAaTro YD8dLq bEUv6g %2BXZw aYqtaq 0bqfl% 2Fg9IQ a4ajBk vP9nXo QUaueC m3YtLR FvZlgJ JJ8mAn HZtai3 0k0305 AC0Kqa XiHWKq mKiQtr MwF INTERFACE [facility] [address], [address], 04/16/2024 08:54:30 04/16/20 24 04/16/2024 XR, knee, 4 or more view [email or web address]:/ [email or web address] ?Encry pted=s hAaTro YD8dLq bEUv6g %2BXZw aYqtaq 0bqfl% 2Fg9IQ a4ajBk vP9nXo QUaueC m3YtLR FvZlgJ JJ8Ringold HZtai3 1j7462 AC0Kqa XiHWKq mKiQtr [facility] INTERFACE [address], [address], 04/16/2024 08:54:32 04/16/20 24 04/16/2024 XR, elbow , 3 or more view [email or web address]:/ [email or web address] ?Encry pted=s hAaTro YD8dLq bEUv6g %2BXZw aYqtaq 0bqfl% 2Fg9IQ a4ajBk vP9nXo QUaueC m3YtLR FvZlgJ [facility] 9t2874 AC0Kqa XiGUaK vKiQtr MwF INTERFACE [facility] [address] [address], [place], [address], 04/16/2024 08:57:40 04/16/20 24 04/16/2024 XR, elbow , 3 or more view [email or web address]:/ [email or web address] ?Encry pted=s hAaTro YD8dLq bEUv6g %2BXZw aYqtaq 0bqfl% 2Fg9IQ a4ajBk vP9nXo QUaueC m3YtLR FvZlgJ JJ8mAn HZtai3 0v0184 AC0Kqa XiGUaK vKiQtr MwF INTERFACE [facility] [address], [place], [address], 04/16/2024 08:57:43 04/22/20 24 04/21/2024 MRI, foot, w/o contr ast [facility] Access ion Number : [id number] Patien t Name: Riya Dumont Record Number : [id number] Date of : 1950 Date of Exam: 2023 Referr ing Physic renae: [facility] [address], [address] [place] [address] Exam: MR Foot (C-) CPT 89664 - Right Room Descri ption: Streeter GE Pion 3T MRI RIGHT FOOT HISTOR Y: [...] onical ly Signed By: Trudi Vernon MD [email or web address] [facility] ([facility]) [address], [place], [address], 05/06/2024 13:44:49 Result Notes None recorded. Problems Name Problem SNOMED Code Status Onset Date Resolution Date Notes Provider Name and Address Organization Details Recorded Time No complaint s 431719032 Active Status: 'I'; Not Available [facility] 4 09:16:47 Pain in elbow 91016096 Active 2023 Valorie salmon [place] - [facility] 4 08:48:27 Carpal tunnel syndrome of left wrist 870799432614 102 Active 2017 Problem Code: G56.02; Problem Code Type: ICD-10; Status: 'A'; Not Available [facility] 4 11:13:07 Trochante shannon bursitis of right hip 111101743405 100 Active 2017 Problem Code: M70.61; Problem Code Type: ICD-10; Status: 'A'; Not Available [facility] 4 11:13:07 Trochante shannon bursitis of left hip 263978010167 103 Active 2017 Problem Code: M70.62; Problem Code Type: ICD-10; Status: 'A'; Not Available [facility] 4 11:13:07 Idiopathi c osteoarth ritis 513232237 Active 2017 Problem Code: M18.12; Problem Code Type: ICD-10; Status: 'A'; Not Available [facility] 4 11:13:07 Joint derangeme nt 565606720 Active 2017 Problem Code: M24.832; Problem Code Type: ICD-10; Status: 'A'; Not Available [facility] 4 11:13:07 Problem Notes None recorded. Procedures Surgical History Date Name Laterality Status Provider Name and Address Organization Details Recorded Time 4 Hip Kenalog 1cc Injection, L/R completed Jane Snider CNP [address] [facility], [place], [address], [facility] 05/01/2024 14:11:24 4 Hip Kenalog 1cc Injection, L/R completed Jane Snider CNP [address], [place], [address], [facility] 11/07/2023 17:04:37 4 Hip Kenalog 1cc Injection, L/R completed Jane Snider CNP [address], [place], [address], [facility] 09/17/2023 12:18:20 Imaging Results Imaging Date Name Status LastModified by Organiz ation Details LastModified Time 04/09/2024 XR, foot, 2 view completed INTERFACE [facility] [address], [place], [address], 04/09/2024 08:54:19 04/09/2024 XR, foot, 2 view completed INTERFACE [facility] [address], [place], [address], 04/09/2024 08:54:22 04/16/2024 XR, knee, 4 or more view completed INTERFACE [facility] [address], [place], [address], 04/16/2024 08:54:30 04/16/2024 XR, knee, 4 or more view completed INTERFACE [facility] [address], [place], [address], 04/16/2024 08:54:32 04/16/2024 XR, elbow, 3 or more view completed INTERFACE [facility] [address], [place], [address], 04/16/2024 08:57:40 04/16/2024 XR, elbow, 3 or more view completed INTERFACE [facility] [address], [place], [address], 04/16/2024 08:57:43 04/21/2024 MRI, foot, w/o contrast completed [email or web address] [facility] ([facility]) [address], [place], [address], 05/06/2024 13:44:49 Procedure Notes None recorded. Medical Equipment None Reported. Allergies Allergen ID Allergen Name Allergen Category Reaction Reaction Severity Criticality Documentation Date Start Date Code Code System Note Provider Name and Address Organization Details Recorded Time 38569 prednison e medicatio n Not available Not available Not available 07/23/20232022 8640 RxNorm Not Available [facility] 13:52:04 61944 Cipro medicatio n Not available Not available Not available 07/23/20232020 89908 3 RxNorm Not Available [facility] 4 13:52:04 77200 lisinopri l medicatio n Not available Not available Not available 07/23/20232020 15904 RxNorm Not Available [facility] 4 13:52:04 Medications Name Sig Start Date [...] Available Not Available gabapentin 100 mg capsule TAKE 1 CAPSULE BY MOUTH THREE TIMES DAILY WITH MEALS active Not Available Not Available N ot Available nystatin 100,000 unit/gram topical powder APPLY TOPICALLY [...] 2023 active Not Available Not Available Not Bernardoai lable Vitals Date Recorded Body height Body mass index (BMI) Body weight Provider Name and Address Organization Details Last Updated DateTime 04/09/2024 160.02 cm 32.9 kg/m2 32292.18 g MARY ALONZO [facility] 04/09/2024 08:20:51 Date Recorded Body height Body mass index (BMI) Body weight Provider Name and Address Organization Details Last Updated DateTime 04/16/2024 160.02 cm 32.9 kg/m2 15800.18 g Valorie Reese [facility] 04/16/2024 08:44:24 Date Recorded Body height Provider Name an d Address Organization Details Last Updated DateTime 04/30/2024 160.02 cm cindy quintana [facility] 04/30/2024 08:50:45 Date Recorded Body height Body mass index (BMI) Body weight Provider Name and Address Organization Details Last Updated DateTime 05/02/2024 160.02 cm 32.9 kg/m2 50182.18 g MARY ALONZO [facility] 05/02/2024 09:44:59 Date Recorded Body height Body mass index (BMI) Body weight Provider Name and Address Organization Details Last Updated DateTime 05/26/2024 160.02 cm 32.9 kg/m2 90595.18 g Bere Puckett [facility] 05/26/2024 08:44:06 Social History None recorded. Functional Status None recorded. Mental Status None recorded. Family History Nothing Reported. Medical History No medical history recorded. Gynecological HistoryNo gynecological history recorded. Obstetrics History GPAL:G 0 P 0 0 0 0 Past Encounters Encounter ID Performer Location Encounter Start Date Encounter Closed Date Diagnosis/Indication Diagnosis SNOMED-CT Code Diagnosis ICD10 Code Diagnosis Note [id number] Jane Snider CNP [facility] [address] [place] [address] 09/17/2023 10:50:43 09/28/2023 13:49:56 Trochanteric bursitis of left hip 1541223961 23488 M70.62 [id number] Jane Snider CNP [facility] [address] [place] [address] 11/08/2023 09:10:59 11/28/2023 12:51:12 Trochanteric bursitis of left hip 8266362307 55963 M70.62 [id number] Jane Snider CNP [facility] [address] [place] [address] 02/27/2024 15:57:30 03/18/2024 09:08:18 History of total knee arthroplasty 0321919419 105 Z96.358 [id number] Aaron Barajas PA-C [facility] [address] [place] [address] 03/05/2024 08:23:39 03/24/2024 10:49:58 Pain in both feet 2308221110 4974726 M79.671 M79.672 Toe joint rigid 82257844 4 M20.21 M20.22 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 6467438771 1069036 M20.21 M20.22 [id number] Aaron Barajas PA-C [facility] [address] [place] [address] 04/09/2024 08:15:41 04/24/2024 11:11:44 Pain in right foot 1998712317 82270 M79.671 Arthritis of right foot 8603817122 646543 M19.367 [id number] Leno Maher PA-C [facility] [address] [place] [address] 04/16/2024 08:15:54 05/20/2024 12:14:40 History of left total knee replacement 9873221967 753468 Z96.652 Pain in elbow 89512709 M 25.522 Contusion of left knee 4408058000 5064576 S80.02XA Contusion of left elbow 0119128207 3303056 S50.02XA [id number] Aaron Barajas PA-C [facility] [address] [place] [address] 04/30/2024 08:44:20 05/29/2024 11:53:50 Arthritis of right foot 0959141085 930696 M19.071 Carpal susy trsita syndrome of left wrist 8338105483 38172 G56.02 [id number] Jane Snider [facility] [address] [place] [address] 05/02/2024 08:58:46 05/23/2024 07:19:39 [id number] Aaron Barajas PA-C [facility] [address] [place] [address] 05/26/2024 08:34:55 06/05/2024 10:21:22 Pain in right foot 6309846109 97315 M79.671 Carpal susy trista syndrome of left wrist 9985682566 52387 G56.02 Arthritis of right foot 7914378822 153347 M19.071 Health Concerns Section Related Observation LastModified by Organization Detai ls LastModified Time None Recorded Concern Status LastModified by Organization Details LastModified Time None Recorded Advance Directives Directive None Recorded Payers Encounter Date Sequence Insurance Name Policy Number Policy Singh Covered Member ID Singh Member ID Guarantor Name 04/09/2024 1 [place] Riya L Julia [id number] Riya L Julia 04/09/2024 2 [place] [id number] Riya L Julia [id number] Riya L Julia 04/16/2024 1 [place] Riya L Julia [id number] Riya L Julia 04/16/2024 2 [place] [id number] Riya L Julia [id number] Riya L Julia 04/30/2024 2 [employer] (MEDICARE SUPPLEMENT) Riya L Julia [id number] Riya L Julia 04/30/2024 1 [place] Riya L Julia [id number] Riya L Julia 05/02/2024 2 [employer] (MEDICARE SUPPLEMENT) Riya L Julia [id number] Riya L Julia 05/02/2024 1 [place] Riya L Julia [id number] Riya L Julia 05/26/2024 2 [employer] (MEDICARE SUPPLEMENT) Riya L Julia [id number] Riya L Julia 05/26/2024 1 [place] Riya L Julia [id number] Riya L Julia Notes Date Note Type Note Provider [...] ambulatory activities. Has been icing as needed. Svxl-vdt-zlsfcya medications as needed for pain relief. No [...] activity modification as well as use of ulvj-iog-rxyaeru medications. Patient can follow-up with us on an as-needed basis. At this time all patient questions and concerns were answered today. Leno Maher PA-C [address] [facility] [address], [place], [address], [facility] 04/21/2024 09:31:08 05/02/2024 text/html Riya is a 73 ye ar old female who is here for follow up of her left hip. She has known trochanteric bursitis and has had previous cortisone injection which gave good relief. She is here for follow up. Jane Snider, LEAD PROCESS ENGINEER [address] [facility] [address], [place], [address], [facility] 05/02/2024 12:12:29 OBGyn Episode No OBEpisode recorded.
--- OUTSIDE RECORDS SUMMARY | 2024-06-18 10:17 | XMS_ITS | Continuity of Care Document ---
Author Organization [place] - [facility], [facility] [address] Address [address] [place] [address] Assessment Encounter Date Assessment Date Assessment LastModified [...] n 100 mg capsule 2024 025 [email or web address] [id number], [address], [place], [id number], 05/26/2024 11:52:41 Patient TargetsNo targets recorded. Patient InstructionsNo instructions recorded. Reason for Referral None Reported. Problems Name Problem SNOMED Code Status Onset Date Resolution Date Notes Provider Name and Address Organization Details Recorded Time No complaint s 122529247 Active Status: 'I'; Not Available [facility] 4 09:16:47 Pain in elbow 88334730 Active 2023 Valorie salmon [place] - [facility] 4 08:48:27 Carpal tunnel syndrome of left wrist 370768421144 102 Active 2017 Problem Code: G56.02; Problem Code Type: ICD-10; Status: 'A'; Not Available [facility] 4 11:13:07 Trochante shannon bursitis of right hip 090022203191 100 Active 2017 Problem Code: M70.61; Problem Code Type: ICD-10; Status: 'A'; Not Available [facility] 4 11:13:07 Trochante shannon bursitis of left hip 380149296374 103 Active 2017 Problem Code: M70.62; Problem Code Type: ICD-10; Status: 'A'; Not Available [facility] 4 11:13:07 Idiopathi c osteoarth ritis 365986073 Active 2017 Problem Code: M18.12; Problem Code Type: ICD-10; Status: 'A'; Not Available [facility] 4 11:13:07 Joint derangeme nt 666373991 Active 2017 Problem Code: M24.832; Problem Code Type: ICD-10; Status: 'A'; Not Available [facility] 4 11:13:07 Problem Notes None recorded. Procedures Surgical History Date Name Laterality Status Provider Name and Address Organization Details Recorded Time 4 Hip Kenalog 1cc Injection, L/R completed Jane Drenga, STREET VENDOR [address], [place], [address], [facility] 05/01/2024 14:11:24 4 Hip Kenalog 1cc Injection, L/R completed Jane Drenga, STREET VENDOR [address], [place], [address], [facility] 11/07/2023 17:04:37 4 Hip Kenalog 1cc Injection, L/R completed Jane Drenga, STREET VENDOR [address], [place], [address], [facility] 09/17/2023 12:18:20 Imaging Results None recorded. Procedure Notes None recorded. Medical Equipment None Reported. Allergies Allergen ID Allergen Name Allergen Category Reaction Reaction Severity Criticality Documentation Date Start Date Code Code System Note Provider Name and Address Organization Details Recorded Time 27282 prednison e medicatio n Not available Not available Not available 07/23/20232022 8640 RxNorm Not Available [facility] 4 13:52:04 72775 Cipro medicatio n Not available Not available Not available 07/23/20232020 19446 3 RxNorm Not Available [facility] 13:52:04 99708 lisinopri l medicatio n Not available Not available Not available 07/23/20232020 88714 RxNorm Not Available [facility] 4 13:52:04 Medications Name Sig Start Date [...] Updated DateTime 05/26/2024 160.02 cm 32.9 kg/m2 68818.18 g Bere Puckett [place] - [facility] 05/26/2024 08:44:06 Social History None recorded. Functional Status None recorded. Mental Status None recorded. Family History Nothing Reported. Medical History No medical history recorded. Gynecological HistoryNo gynecological history recorded. Obstetrics History GPAL:G 0 P 0 0 0 0 Past Encounters Encounter ID Performer Location Encounter Start Date Encounter Closed Date Diagnosis/Indication Diagnosis SNOMED-CT Code Diagnosis ICD10 Code Diagnosis Note [id number] [facility] [address] [place] [address] 04/30/2024 08:44:20 05/29/2024 11:53:50 Arthritis of right foot 6845055033 141591 M19.071 Carpal susy trista syndrome of left wrist 4717298754 17227 G56.02 [id number] Jane Agatha, STREET VENDOR [facility] [address] [place] [address] 05/02/2024 08:58:46 05/23/2024 07:19:39 [id number] Aaron Barajas PA-C [facility] [place] [address] [place] [address] 05/26/2024 08:34:55 06/05/2024 10:21:22 Pain in right foot 0985377628 82441 M79.671 Carpal susy trista syndrome of left wrist 1086306952 84251 G56.02 Arthritis of right foot 3309818366 825826 M19.071 Health Concerns Section Related Observation LastModified by Organization Detai ls LastModified Time None Recorded Concern Status LastModified by Organization Details LastModified Time None Recorded Payers Encounter Date Sequence Insurance Name Policy Number Policy Singh Covered Member ID Singh Member ID Guarantor Name 05/26/2024 2 [employer] (MEDICARE SUPPLEMENT) Riya Dumont [id number] Riya Dumont 05/26/2024 1 [place] Riya Dumont [id number] Riya Dumont OBGyn Episode No OBEpisode recorded.
--- OUTSIDE RECORDS SUMMARY | 2024-06-18 10:17 | XMS_ITS | Clinical Summary ---
Author Organization [facility] Address [address] [place] [address] Care Team Providers Care Drop Wire Hanger Name Role Phone Unavailable Primary Care Provider Unavailabl e Social History Tobacco Use Types Packs/Day Years Used Date Smoking Tobacco: Never Assessed Sex and Gender Information Value Date Recorded Sex Assigned at Not on file Gender Identity Not on file Sexual Orientation Not on file Plan of Treatment Health Maintenance Due Date Last Done Comments Hepatitis C Virus Screening 1950 DTaP/Tdap/Td Vaccines (1 - Tdap) 1969 Mammogram 1990 Colonoscopy 1995 Pneumococcal Vaccines 50+ (1 of 1 - PCV) 2000 Zoster (Shingles) Vaccine (1 of 2) 2000 DXA Bone Density (Females,Ag es 65 and older) 2015 Influenza Vaccine 12/20/2023 COVID-19 Vaccine ( - 2023-2 5 season) 2024 RSV Vaccine 60 years and old er and Patients (1 - 1-dose 75+ series) 2025 Hepatitis B Vaccines Aged Out No long er eligible based on patient's age to complete this topic Medical Devices Implanted Type Area Grazing Aide Device Identifier Shelf Expiration Date Model / Serial / Lot [id number] Implanted:Qty: 1 on 01/03/2021 by Raghu Goddard MD at [facility] [place] [email or web address] HE[employer] CAR DIB00.185 / [id number] / Dib00.190 Implanted:Qty: 1 on 02/07/2021 by Raghu Goddard MD at [facility] [place] [email or web address] HEALTH CAR DIB00.190 / [id number] / ARIELLE TOTH [id number]
--- OUTSIDE RECORDS SUMMARY | 2024-06-18 10:18 | XMS_ITS | Clinical Summary ---
Author Organization [facility] Facility Address [address] [place] [address] Care Team Providers Care Food Safety Field Specialist Name Role Phone Unavailable Primary Care Provider Unavailabl e Social History Tobacco Use Types Packs/Day Years Used Date Smoking Tobacco: Never Assessed Comments Unknown Sex and Gender Information Value Date Recorded Sex Assigned at Not on file Legal Sex Female 10:36 AM EDT Gender Identity Not on file Sexual Orientation Not on file Plan of Treatment Health Maintenance Due Date Last Done Comments Breast Cancer Screening 1950 Colorectal Cancer Screening: Annual FOBT 1999 Colorectal Cancer Screening: Colonoscopy 1999 Colorectal Cancer Screening: Sigmoidoscopy 1999 Diabetes: Hemoglobin A1C 12/11/2022 Diabetes: Ophthalmology Exam 12/11/2022 Diabetes: Pedal Pulse Checked 12/11/2022 Diabetes: Sensory Foot Exam 12/11/2022 Diabetes: Visual Foot Exam 12/11/2022 Influenza Vaccine (#1) 2024 , 03/13/2019, 02/28/2018 Pneumococcal Vaccine: 65+ Years Completed 05/17/2017, 03/31/2016 Hepatitis B Vaccine Aged Out No longe r eligible based on patient's age to complete this topic Insurance MEDICARE [facility] MEDICARE [facility]
--- OUTSIDE RECORDS SUMMARY | 2024-06-18 10:18 | XMS_ITS | Clinical Summary ---
[facility] Address [address] [place] [address] Care Team Providers Care Variety Performer Name Role Phone Unavailable Primary Care Provider Unavailabl e Social History Tobacco Use Types Packs/Day Years Used Date Smoking Tobacco: Never Assessed Sex and Gender Information Value Date Recorded Sex Assigned at Not on file Gender Identity Not on file Sexual Orientation Not on file Plan of Treatment Health Maintenance Due Date Last Done Comments Breast Cancer Screening 1950 DTaP,Tdap,and Td Vaccines (1 - Tdap) 1969 Zoster Vaccines (1 of 2) 2000 Pneumococcal Vaccine: 65+ Ye ars (1 of 1 - PCV) 2015 Colorectal Cancer Screening: Colonoscopy 12/18/2023 Depression Screening 12/18/2023 Falls Risk Assessment 12/18/2023 Hepatitis C Screening 12/18/2023 Osteoporosis Screening (Bone Density Screening) 12/18/2023 Social Influencers of Health Screening 12/18/2023 COVID-19 Vaccine ( - 2023-2 5 season) 2024 Influenza Vaccine (#1) 2024 RSV Immunization Patients 60 + Years Old (1 - 1-dose 75+ series) 2025 HIB Vaccines Aged Out No longer eligi ble based on patient's age to complete this topic HPV Vaccines Aged Out No longer eligi ble based on patient's age to complete this topic Hepatitis A Vaccines Aged Out No long er eligible based on patient's age to complete this topic Hepatitis B Vaccines Aged Out No long er eligible based on patient's age to complete this topic IPV Vaccines Aged Out No longer eligi ble based on patient's age to complete this topic MMR Vaccines Aged Out No longer eligi ble based on patient's age to complete this topic Meningococcal ACWY Vaccine Aged Out N o longer eligible based on patient's age to complete this topic RSV Immunization Patients Un misti 20 months Aged Out No longer eligible b ased on patient's age to complete this topic Varicella Vaccines Aged Out No longer eligible based on patient's age to complete this topic
--- OUTSIDE RECORDS SUMMARY | 2024-06-18 10:18 | XMS_ITS | Patient Health Record ---
Author Organization [facility] Address [address] [place] [address] Care Team Providers Care Lining Mechanic Name Role Phone FERN JOHNSON CNP Primary Care Provider Unavail able CYNTHIA FORMAN Unavailable [phone] Allergies Allergen (clinical drug ingredient) Drug/Non Drug Allergy documented on EMR Reaction Allergy Type Onset Date Status lisinopril Lisinopril shortness of breath Drug Allergy Active Reason For Referral No Information Medications Medication SIG (Take, Route, Frequency, Duration) Notes Start Date End Date Status Bisoprolol Fumarate 5 MG 1 tablet Orally Once a day for 30 day(s) Active Xanax 0.25 MG 1 tablet Orally Twic e a day Not-Taking Estradiol 0.1 MG/GM 1 gram Vaginal Three times per week for 365 days 10/23/2022 Active glipiZIDE 10 MG 1 tablet 30 minutes before breakfast Orally Once a day for 30 day(s) Active Carvedilol 25 MG Orally Act mahendra Vitamin D 50 MCG (1999 UT) 1 capsule Orally Once a day for 30 day(s) Active Eliquis 5 MG as directed Orally Active Premarin 0.625 MG/GM 1 Gram Vaginal Twic e a week for 30 days 05/31/2022 Not-Taking Lotrisone 1-0.05% 1 application to affected area externally bid for 10 days 01/25/2021 Not-Taking Triamterene Active dilTIAZem HCl ER Beads 180 MG 1 capsule Orally Once a day for 30 day(s) Not-Taking Social History Tobacco Use: Social History Observation Description Date Details (start date - stop date) Never Smoker NA - NA Tobacco Use/Smoking Question Answer Notes Are you a nonsmoker Alcohol Screen (Audit-C) Question Answer Notes Did you have a drink containing alcohol in the p ast year? No Points 0 Interpretation Negative Sexual History Question Answer Notes Had sex in the past 12 months (vaginal, oral, or anal)? No Problems Problem Type SNOMED Code ICD Code Onset Dates Problem Status W/U Status Risk Notes Problem Postmenopausal atrophic vaginitis (73910481) Postmenopausal atrophic vaginitis (N95.2) Active confirmed Problem Essential hypertension (07217611) Essential (primary) hypertension (I10) Active confirmed Problem Leiomyoma of uterus (91039087) Leiomyoma of uterus, unspecified (D25.9) Active confirmed Problem Type II diabetes mellitus without complication (011807704) Type 2 diabetes mellitus without complications (E11.9) Active confirmed Problem Hyperlipidemia (04306700) Hyperlipidemia, unspecified (E78.5) Active confirmed Problem Anxiety disorder (452313599) Anxiety disorder, unspecified (F41.9) Active confirmed Problem Migraine without aura, not refractory (disorder) (927531219) Migraine, unspecified, not intractable, without status migrainosus (G43.909) Active confirmed Problem Paroxysmal atrial fibrillation (824909167) Paroxysmal atrial fibrillation (I48.0) Active confirmed Problem Osteoarthritis (783248509) Unspecified osteoarthritis, unspecified site (M19.90) Active confirmed Problem Atrophy of vulva (448109734) Atrophy of vulva (N90.5) Active confirmed Plan Of Treatment Pending Test Test Name Order Date Bone Density 10/19/2020 THIN PREP,HPV,LEE ANN IF HPV+ (>29YR)(SCRN) 04/20/2017 MM Digital Mammo Screening 10/19/2020 MM Digital Screening Mammogram 3D 2022 Next Appt Details Provider Name:CYNTHIA Reis, 10/27/2024 01:00:00 PM, [address] [place] [address], [address], [place], [address], Insurance Providers Payer Name Payer Address Payer Phone Subscriber Number Group Number Insured Name Patient Relationship to Insured Coverage Start Date Coverage End Date MEDICARE [address] [place] [id number] RAH WISE Self - patient is the insured MEDEX [address] [place] [address] [id number] RAH WISE Self - patient is the insured Medical (General) History Medical History History ICD Code Essential (primary) hypertension I10 Type 2 diabetes mellitus without complic ations E11.9 Unspecified osteoarthritis, unspecified site M19.90 Migraine, unspecified, not intractable, without status migrainosus G43.909 Hyperlipidemia, unspecified E78.5 Leiomyoma of uterus, unspecified D25.9 Surgical History Surgery Date(Month/Year) Cholecystectomy 1989 R ankle fracture repair 1998 Lmainectomy 2000 Bilateral Tubal Ligation Appendectomy Tonsillectomy Hospitalization History Reason Date(Month/Year) See Surgical Hx
== END 2024-06-18 10:04 | disposition home or self-care (01) ==
PROVIDERS: PCP Nurse Practitioner Family; Visit Provider Internal Medicine Rheumatology
DX: M15.4 Erosive (osteo)arthritis (principal); M21.611 Bunion of right foot
CPT/HCPCS: 20600; 99214

== ENCOUNTER 2024-06-18 09:01 | Outpatient (REF) | payer MEDICARE, SELFPAY ==
--- OUTSIDE RECORDS SUMMARY | 2024-06-18 12:12 | XMS_ITS | Clinical Summary ---
Author Organization [facility] Facility Address [address] [place] [address] Care Team Providers Care Railroad Track Repair Supervisor Name Role Phone Unavailable Primary Care Provider [...] age to complete this topic Insurance MEDICARE [facility] MEDICARE [facility]
--- OUTSIDE RECORDS SUMMARY | 2024-06-18 12:12 | XMS_ITS | Clinical Summary ---
[facility] Organization [facility] Address [address] [place] [address] Care Team Providers Care Hide Splitter Name Role Phone Unavailable Primary Care Provider [...]
[2024-06-18 17:41] LABS: MANUAL DIFF FLAG NO
[2024-06-18 17:50] LABS: Basophils Percent Auto 0.6 % (0-2); Eosinophils Absolute Auto 0.4 X10*3/uL (0.0-0.4); Eosinophils Percent Auto 5.5 % (0-4); Hemoglobin 13.1 g/dl (12.0-16.0); Imm Gran Abs Auto 0.03 X10*3/uL (0.00-0.03); Imm Gran Pct Auto 0.5 % (0.0-0.4); Lymphocytes Percent Auto 15.2 % (20-40); Mean Corpuscular Hemoglobin 28.9 pg (27.0-33.0); Mean Corpuscular Volume 90.5 fL (80.0-98.0); Mean Platelet Volume 9.7 fL (9.4-12.3); Monocytes Absolute Auto 0.5 X10*3/uL (0.1-1.2); Monocytes Percent Auto 8.2 % (2-11); Neutrophils Absolute Auto 4.5 x10*3/uL (2.0-8.3); Platelet Count 293 X10*3/uL (160-400); Red Blood Count 4.53 X10*6/uL (4.20-5.50); Red Cell Distribution Width 13.2 % (11.0-16.0); White Blood Count 6.4 X10*3/uL (4.8-10.8)
[2024-06-18 18:12] LABS: Alanine Aminotransferase 11 U/L (0-31); Aspartate Amino Transferase 22 U/L (5-31); C Reactive Protein 1.95 mg/dL (< or = 0.50); Estimated Glomerular Filt Rate > 60
[2024-06-18 18:41] LABS: Erythrocyte Sedimentation Rate 18 MM/HR (0-20)
[2024-06-19 05:52] LABS: HBS Num1 0.54 mIU/mL (0-7.99); HBc Num1 0.13 S/CO (0.00-0.79); HBsAGNum1 0.59 S/CO (0.00-0.99); Hepatitis B Core Antibody Nonreactive (Nonreactive); Hepatitis B Surface Antigen Negative (Negative); ~HepC Num1 0.05 S/CO (0.00-0.79); ~Hepatitis B Surface Antibody NONREACTIVE (Nonreactive); ~Hepatitis C Antibody Nonreactive (Nonreactive)
[2024-06-21 15:53] LABS: TS Negative Control Passed; TS Panel A 0; TS Panel B 0; TS Positive Control Passed; TSpotTB Negative (Negative)
[2024-06-27 18:39] LABS: Glucose-6-Phosphate Dehydrogen 16.7 U/g Hgb (7.0-20.5)
== END 2024-06-18 09:02 | disposition home or self-care (01) ==
LOC: HO.HKASLDS 09:01
PROVIDERS: PCP Nurse Practitioner Family; Visit Provider Internal Medicine Rheumatology
DX: M15.4 Erosive (osteo)arthritis (principal); M21.611 Bunion of right foot
CPT/HCPCS: 20600; 36415; 82565; 82955; 84450; 84460; 85025; 85652; 86140; 86481; 86704; 86706; 86803; 87340; 99212; J2003; J3300

== ENCOUNTER → 2024-06-25 08:25 | Outpatient (BNVA) | payer MEDICARE, SELFPAY | PROVIDERS: PCP Nurse Practitioner Family; Visit Provider Internal Medicine Rheumatology | DX: M21.611 Bunion of right foot (principal); G62.9 Polyneuropathy, unspecified | CPT/HCPCS: 99212 ==

== ENCOUNTER 2024-10-16 08:41 | Outpatient (AMB) | payer MEDICARE, SELFPAY ==
--- NOTE | 2024-10-16 08:46 | MHC.OFFVIS ---
Vital Signs 10/16/24 08:47 Height 5 ft 4 in Weight 206 lb 12.697 oz BMI 35.5 BP 120/80 Blood Pressure Location Lt brachial Position Sitting Pulse 66 Pulse Source Pulse Oximeter Pulse Oximetry (%) 100 Oxygen Delivery Method Room Air Intake Visit Reasons: Follow Up Intake Note: Patient presents for right foot pain. Allergies ciprofloxacin [From Cipro] Allergy (Mild, Verified 10/16/24 09:00) rash prednisone Allergy (Mild, Verified 10/16/24 09:00) Itching Sulfa (Sulfonamide Antibiotics) Allergy (Mild, Verified 10/16/24 09:00) Rash acetaminophen [From Percocet] Adverse Reaction (Mild, Verified 10/16/24 09:00) itchiness albuterol Adverse Reaction (Mild, Verified 10/16/24 09:00) can't breathe high blood pressure oxycodone Adverse Reaction (Mild, Verified 10/16/24 09:00) itchiness tramadol Adverse Reaction (Mild, Verified 10/16/24 09:00) headache, nausea HPI HPI Follow Up: Details: She had increased pain after right MTP cortisone injection. It lasted at least a week. She had uncontrolled foot pain in [place]. Pain waxes and wanes. When she was in [place] for 4 days she had no foot pain. She has been going to physical therapy with benefit. She has pain and swelling of left 4th finger. She is unable to bend it. [facility] Medical History Encounter for colonoscopy following surgery for colon cancer Surgical History History of total left knee replacement (TKR) History of cholecystectomy Social History Household Members: None Housing: Condominium Alcohol intake: former Patient Tobacco Use Status: Never used Tobacco Physical Exam Vital Signs: Last Vital Signs Pulse 66 10/16/24 08:47 BP 120/80 10/16/24 08:47 Pulse Ox 100 10/16/24 08:47 Oxygen Delivery Method Room Air 10/16/24 08:47 BMI result Body Mass Index 35.5 Const Other: General: Comfortable Skin: No lesions seen MSK: Left 4th PIP synovitis present with reduced flexion. Hallux valgus deformity present with tenderness on palpation on 1st right MTP. She has tenderness along the 1st extensor tendon to the midfoot. Office Procedures AMB Joint Injection/Aspiration Joint Injection/Aspiration Details: Left 4th PIP Prep: site was prepped using aseptic technique Injected: 10 mg of, Kenalog, with 0.25 mL of and 1% plain lidocaine Procedure: Informed verbal consent was obtained. Risks and benefits were discussed including the possibility of steroid flare. The patient tolerated the procedure well. Postprocedure protocol was discussed with patient. Coding - Small Joint Procedure code (CPT) selection complete Office Meds lidocaine (PF) 10 mg/mL (1 %) injection solution Performing Provider: Marino Bonner MD [place] [facility] [place] Administered by: Marino Bonner MD on 10/16/24 21:30 Dose Route Admin Location Dispensed Lot Number Expiration Date [facility] Twine Winder 2.5 mg Infiltration 2 mL [id number] [facility] [employer] [employer] [facility] [employer] [facility] Kenalog 40 mg/mL suspension for injection Performing Provider: Marino Bonner MD [place] [facility] Administered by: Marino Bonner MD on 10/16/24 21:30 Dose Route Admin Location Dispensed Lot Number Expiration Date [facility] Twine Winder 10 mg intra-articular 1 mL [place] [id number] [facility] Assessment & Plan Assessment & Plan (1) Erosive osteoarthritis of hand: Comment: Bilateral hands. Chronic. Flare of left 4th PIP. Contraindication to oral NSAID use due to concurrent use of anticoagulation apixaban. In the past we had discussed use of hydroxychloroquine to help reduce hand pain. There is an interaction with hydroxychloroquine and apixaban, which can increase the levels of apixaban increasing bleeding risk - I have agreed to monitor patient for side effect if she would like to try hydroxychloroquine to control her joint pain. Code(s): M15.4 - Erosive (osteo)arthritis Category: Medical Plan: Patient received cortisone injection to left 4th PIP. If patient decides that she wants to try hydroxychloroquine to reduce hand pain, she may call office anytime Return to clinic in 1 year or sooner if needed (2) Bunion, right foot: Comment: Pain has improved with physical therapy. MRI 04/22/2024 of right foot confirms osteoarthritis of the 1st MTP. There is no mention of tendon pathology on MRI. [facility] prescribed boot for patient and physical therapy. Code(s): M21.611 - Bunion of right foot Category: Medical Plan: Continue physical therapy Continues supportive footwear Continue to use diclofenac gel 1% applied to affected area as needed Return to clinic in 1 year or sooner if needed Orders: Orders AMB Joint Injection/Aspiration Today M15.4 - Erosive (osteo)arthritis Coding Level of Care Code Est Pt Level 4 (71204) Complex EM visit Add On G2211 Diagnoses Erosive osteoarthritis of hand M15.4 Bunion, right foot M21.611 CPT Codes Coding - - Small joint: - Small Joint ([id number])
[2024-10-16 08:47] VITALS: BP 120/80; PULSE 66; O2SAT 100; BMI 35.5
--- OUTSIDE RECORDS SUMMARY | 2024-10-16 08:56 | XMS_ITS | Clinical Summary ---
Author Organization [facility] Address [address] [place] [address] Care Team Providers Care Production Bow Maker Name Role Phone Unavailable Primary Care Provider Unavailabl e Social History Tobacco Use Types Packs/Day Years Used Date Smoking Tobacco: Never Assessed Comments Unknown Sex and Gender Information Value Date Recorded Sex Assigned at Not on file Legal Sex Female 10:48 AM EDT Gender Identity Not on file Sexual Orientation Not on file Plan of Treatment Health Maintenance Due Date Last Done Comments Hepatitis C Virus Screening 1950 DTaP/Tdap/Td Vaccines (1 - Tdap) 1969 Mammogram 1990 Colonoscopy 1995 Pneumococcal Vaccines 50+ (1 of 1 - PCV) 2000 Zoster (Shingles) Vaccine (1 of 2) 2000 DXA Bone Density (Females,Ag es 65 and older) 2015 COVID-19 Vaccine ( - 2023-2 5 season) 2024 Influenza Vaccine 12/19/2024 RSV Vaccine 60 years and old er and Patients (1 - 1-dose 75+ series) 2025 Hepatitis B Vaccines Aged Out No long er eligible based on patient's age to complete this topic Medical Devices Implanted Type Area Mother Helper Device Identifier Shelf Expiration Date Model / Serial / Lot [id number] Implanted:Qty: 1 on 01/03/2021 by Raghu Goddard MD at [facility], Scan•Jour L[employer] CAR [id number] / [id number] / [id number] Implanted:Qty: 1 on 02/07/2021 by Raghu Goddard MD at [facility] [place], Staley Lens [employer] [id number] / [id number] / Insurance (Kamuela) [facility] [place] [id number] MEDICARE PART A & B [facility]
== END 2024-10-16 09:46 | disposition home or self-care (01) ==
LOC: HO.RHES 08:42
PROVIDERS: PCP Nurse Practitioner Family; Visit Provider Internal Medicine Rheumatology
DX: M15.4 Erosive (osteo)arthritis (principal); M21.611 Bunion of right foot
CPT/HCPCS: 20600; 99213

== ENCOUNTER → 2024-10-16 08:41 | Outpatient (BNVA) | payer MEDICARE, SELFPAY | PROVIDERS: PCP Nurse Practitioner Family; Visit Provider Internal Medicine Rheumatology | DX: M15.4 Erosive (osteo)arthritis (principal); M21.611 Bunion of right foot | CPT/HCPCS: 20600; 99212; J2003; J3300 ==